=== PATIENT | female | born 1990 | race Caucasian/White ===

== ENCOUNTER 2025-08-18 12:06 | Observation (INO) | payer OTHER, SELFPAY ==
[2025-08-18 09:09] VITALS: RESP 16; TEMP 37.2
[2025-08-18 09:14] VITALS: BP 139/85; PULSE 96
[2025-08-18 09:20] VITALS: BMI 44.6
[2025-08-18 12:12] LABS: Partial Thromboplast Time 29.2 Seconds (24.1-36.2); Prothrombin Time (Protime)PT. 14.5 SECONDS (11.7-14.9)
[2025-08-18 12:13] LABS: Fibrinogen 457 mg/dl (203-444)
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
[2025-08-18 12:19] LABS: Hematocrit 31.1 % (37-47); Hemoglobin 10.2 g/dL (12.0-15.0); Mean Corp Hgb Conc 32.8 g/dL (32-36); Mean Corpuscular Volume 87.1 fL (81-99); Mean Platelet Vol. 9.3 fl (6.2-12.0); Platelet Count 198 K/mm3 (150-450); RBC Distribution Width CV 13.4 % (11.6-14.6); RBC Distribution Width SD 42.6 fl (35.1-43.9); Red Blood Count 3.57 M/mm3 (4.2-5.4); White Blood Count 11.2 K/mm3 (4.4-11.0)
[2025-08-18 17:43] VITALS: BP 135/77; PULSE 78
[2025-08-18 19:10] VITALS: BP 143/81; PULSE 95; TEMP 36.2; O2SAT 98
[2025-08-18 23:40] VITALS: BP 106/59; PULSE 70
[2025-08-19 05:19] VITALS: BP 130/70; PULSE 71; RESP 16; TEMP 36.9
== END 2025-08-19 07:40 | disposition home or self-care (01) ==
LOC: WP 12:34
PROVIDERS: Admitting Provider Obstetrics & Gynecology; Referring Provider Obstetrics & Gynecology; Visit Provider Obstetrics & Gynecology
DX: Z04.1 Encounter for examination and observation following transport accident (principal); Z79.82 Long term (current) use of aspirin; Z3A.32 32 weeks gestation of pregnancy
CPT/HCPCS: 36415; 59025; 59050; 85027; 85384; 85610; 85730; 86850; 86900; 86901; 99221; G0378

== ENCOUNTER 2025-09-22 19:30 | Inpatient (IN) | payer OTHER, SELFPAY ==
[2025-09-22] VITALS (9 sets, daily range): BP systolic 136–155; BP diastolic 90–96; PULSE 87–106; RESP 16; TEMP 36.7–37; O2SAT 92–99; BMI 45.0
--- OUTSIDE RECORDS SUMMARY | 2025-09-22 20:17 | XMS RPT_ITS | CCD ---
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 CLIA [id number] [address] [place] [address] [place] Iron binding capacity [Mass/Vol] 451 ug/dL High 232-386 [facility] Comment on above: Order Comment: Speci men Type: BLOOD SPECIMEN Ordering Facility: [facility] Address: [address] [place] [address] Performed By: #### 2 276-4, 87266-0 #### [facility] CLIA [id number] [address] [place] [address] [place] Iron/TIBC [Molar ratio] 10.9 % Low 15.0-57.0 [facility] Comment on above: Order Comment: Speci men Type: BLOOD SPECIMEN Ordering Facility: [facility] Address: [address] [place] [address] Performed By: #### 2 276-4, 37742-9 #### [facility] CLIA [id number] [address] [place], [place] [address] [place] Reagin and Treponema pallidu m IgG and IgM [Interp]on 07-21-2025 T. pallidum IgG+IgM IA Ql (S) Non-Reactive Normal Nonreactive [facility] Comment on above: Order Comment: Speci men Type: BLOOD SPECIMEN Ordering Facility: [facility] Address: [address] [place] [address] Performed By: #### 2 276-4, 28557-0 #### [facility] CLIA [id number] [address] [place] [address] [place] Reagin+T pallidum IgG+IgM Se rPl-Impon 07-21-2025 Reagin and Treponema pallidum IgG and IgM [Interp] Cannot exclude recent Treponemal infection if specimen collected within 7-10 days after appearance of suspect lesions or 2-3 weeks after an exposure. Clinical correlation is required. Normal [facility] Comment on above: Order Comment: Speci men Type: BLOOD SPECIMEN Ordering Facility: [facility] Address: [address] [place] [address] Performed By: #### 2 276-4, 79392-5 #### [facility] CLIA [id number] [address] [place] [address] [place] Examination level ultrasound on 05-26-2025 Indication Detailed anatomic survey Maternal obesity, BMI >40 Impression The patient is referred for a detailed anatomic survey. - Single, live, intrauterine . - biometry is consistent with the established gestational age. - No malformations were visualized on a complete detailed anatomic survey. - The amniotic fluid volume is normal amount. - The placenta is anterior, fundal. - The Transabdominal cervical length measures 33.2 mm with no evidence of funneling or other dynamic changes. - Not all structural malformations can be detected by ultrasound examination. Recommendations - growth every 4 weeks starting at 28 weeks. - Additional follow up as clinically indicated. Maternal Assessment Height 163 cm Height (ft) 5 ft Height (in) 4 in Physical Exam Initial weight (lb) 254 lb Initial BMI 43.60 kg/m Maternal assessment other: 1 Para 0 REMOTE READ Method Transabdominal ultrasound examination. View: Suboptimal view: limited by maternal body habitus Clements . Number of fetuses: 1 Dating LMP on: 11/30/2024 GA by LMP 25 w + 2 d MARYSOL by LMP: 09/06/2025 GA by prior assessment 20 w + 1 d MARYSOL by prior assessment: 10/12/2025 Ultrasound examination on: 05/26/2025 GA by U/S based upon: AC, BPD, Femur, HC GA by U/S 20 w + 6 d MARYSOL by U/S: 10/07/2025 Assigned: based on stated MARYSOL, selected on 05/26/2025 Assigned GA 20 w + 1 d Assigned MARYSOL: 10/12/2025 General Evaluation Cardiac activity present. FHR 145 bpm. movements: present. Presentation: cephalic Placenta: Placental site: anterior, fundal Umbilical cord: Cord vessels: 3 vessel cord. Insertion site: normal insertion Amniotic fluid: Amount of AF: normal amount. MVP 6.4 cm Growth Overview Exam date GA BPD (mm) HC (mm) AC (mm) FL (mm) HL (mm) EFW (g) 05/26/2025 20w 1d 47.9 64% 179.5 58% 168.6 91% 33.9 80% 34.6 96% 403 92% Biometry Standard BPD 47.9 mm 20w 3d 64% Hadlock OFD 63.5 mm 20w 2d 80% Nicolaides HC 179.5 mm 20w 3d 58% Patrizia Cerebellum tr 22.4 mm 20w 6d 92% Hill Nuchal fold 4.1 mm AC 168.6 mm 21w 6d 91% Hadlock Femur 33.9 mm 20w 6d 80% Patrizia Humerus 34.6 mm 21w 6d 96% Patrizia EFW 403 g 21w 0d 92% Hadlock EFW (lb) 0 lb EFW (oz) 14 oz EFW by: Hadlock (HC-AC-FL) Extended Subassemblies Wirer 4.6 mm CM 4.7 mm 40% Nicolaides Extremities / Bony Struc FL / HC 0.19 61% Hadlock Other Structures FHR 145 bpm Anatomy Cranium: normal Lateral ventricles: normal Choroid plexus: normal Midline falx: normal Cavum septi pellucidi: normal Cerebellum: normal Cisterna magna: normal Head / Neck Vermis: normal Neck: normal Nuchal fold: normal Lips: normal Profile: normal Nose: normal Face Maxilla: normal Mandible: normal Orbits: normal Lens: normal 4-chamber view: normal RVOT view: normal LVOT view: normal 3-vessel view: normal 9-lvepyx-eouctok view: normal Heart / Thorax Situs: situs solitus (normal) Aortic arch view: normal SVC: normal IVC: normal Cardiac axis: normal Rt lung: normal Lt lung: normal Diaphragm: normal Cord insertion: normal Stomach: normal Kidneys: normal Bladder: normal Genitals: normal Abdomen Abdom. wall: normal Cervical spine: normal Thoracic spine: normal Lumbar spine: normal Sacral spine: normal Arms: normal Legs: normal Rt upper arm: normal Rt forearm: normal Rt hand: normal Rt fingers: normal Lt upper arm: normal Lt forearm: normal Lt hand: normal Lt fingers: normal Rt upper leg: normal Rt lower leg: normal Rt foot: normal Lt upper leg: normal Lt lower leg: normal Lt foot: normal sex: female Wants to know sex: yes Maternal Structures Uterus / Cervix Uterus: Visualized Cervix: Visualized Approach: Transabdominal Cervical length 33.2 mm Other: Patient declined transvaginal ultrasound for cervical length. Ovaries / Tubes / Adnexa Rt ovary: Visualized Lt ovary: Visualized Performed By: Alicia Maldonado RDMS, RVT Read By: Vianey Velarde M.D. MATERNAL MEDICINE [facility]ative[facility] Telephone (OBGYWM) ERIC DE ([id number]) 1990 F Date Time Provider Department 05/13/25 ELINA MORRISON OBSTACIA During your visit today, we recorded the following information about you: Wendy Sharp LPN 05/13/2025 8:26 AM Signed Vitafol Ultra vitamin requires prior authorization. Per insurance a therapeutic alternative is preferred. Complete Leidy DHA, Plus, + DHA, TheraNatal Complete, M- PlusAron Annalee, LPN 05/13/2025 4:49 PM Signed Left message for patient to call back. Was patient able to product picker vitamin at pharmacy or does an alternative need prescribed? Lindsey Calixto, RN 05/20/2025 11:56 AM Signed Left message for patient to call office or check mychart message. ALESSIO Marie Jessica, APRN.CNM 05/22/2025 10:33 AM Signed Sent in new prescription. Bandar, Elina Morrison APRN.Darryl Amaro RN 05/22/2025 10:57 AM Signed Pt notified and voiced understanding. Darryl Cochran RN Allergies As of Date: 05/13/2025 Noted Allergy Reaction AVOCADO 03/19/2024 4 - Hives 2 - Rash 7 - Swelling CATS 06/23/2006 dust [Other] 06/23/2006 Date Reviewed: 04/28/2025 Reviewed by: Mario Bagley MA - Fully Assessed Reason for Visit: Medication Problem [65] Order(s):PNV no.72-iron xlg-HD-zu8-dha ( PLUS DHA) 27 mg iron-1 mg -312 mg-250 mg cmpkTake 1 Dose Pack by mouth once daily.Disp: 30 eachRfl: 11 Prescriptions as of 05/22/2025 - PNV no.72-iron edv-VP-sy7-dha ( PLUS DHA) 27 mg iron-1 mg -312 mg-250 mg cmpk Take 1 Dose Pack by mouth once daily. - PNV 67-iron ps-folate no.1-dha (VITAFOL ULTRA) 29 mg iron- 1 mg-200 mg cap Take 1 capsule by mouth once daily. - pyridoxine HCl, vitamin B6, (VITAMIN B-6 ORAL) Take by mouth. - aspirin, enteric coated (ECOTRIN LOW STRENGTH) 81 mg EC tablet Take 1 tablet by mouth once daily. Problem List As Of Date 05/13/2025 Noted Resolved Irregular menstrual cycle [N92.6] 08/13/2013 03/19/2024 Psoriasis [L40.9] 03/19/2024 Encounter for supervision of high risk pregnanc*02/20/2025 Obesity affecting in first trimester *02/20/2025 Nausea and vomiting [R11.2] 02/20/2025 History of trauma [Z87.828] 02/20/2025 with uncertain dates in first trimest*02/20/2025 Prescriptions ordered this encounter Disp Refills Start End PLUS DHA 27 MG IRON-1 MG-31* 30 e* 11 05/22/2025 Route: PO Sig: Take 1 Dose Pack by mouth once daily. Encounter Status:Closed by DARRYL COCHRAN on 05/22/25 Normal [facility] CBC W Auto Differential pane l (Bld)on 03-31-2025 Basophils (Bld) [#/Vol] 10*3/uL Normal <0.11 [facility] Comment on above: Order Comment: Speci men Type: BLOOD SPECIMEN Ordering Facility: [facility] Address: [address] [place] [address] Performed By: #### 2 276-4, 45355-2 #### [facility] CLIA [id number] [address] [place] [address] [place] Basophils/100 WBC (Bld) 0.1 % Normal [facility] Comment on above: Order Comment: Speci men Type: BLOOD SPECIMEN Ordering Facility: [facility] Address: [address] [place] [address] Performed By: #### 2 276-4, 24788-9 #### [facility] CLIA [id number] [address] [place] [address] [place] Differential cell count method Nom (Bld) Auto Normal [facility] Comment on above: Order Comment: Speci men Type: BLOOD SPECIMEN Ordering Facility: [facility] Address: [address] [place] [address] Performed By: #### 2 276-4, 46010-6 #### [facility] CLIA [id number] [address] [place] [address] [place] Eosinophils (Bld) [#/Vol] 0.05 10*3/uL Normal <0.46 [facility] Comment on above: Order Comment: Speci men Type: BLOOD SPECIMEN Ordering Facility: [facility] Address: [address] [place] [address] Performed By: #### 2 276-4, 48155-9 #### [facility] CLIA [id number] [address] [place] [address] [place] Eosinophils/100 WBC (Bld) 0.7 % Normal [facility] Comment on above: Order Comment: Speci men Type: BLOOD SPECIMEN Ordering Facility: [facility] Address: [address] [place] [address] Performed By: #### 2 276-4, 30853-5 #### [facility] CLIA [id number] [address] [place] [address] [place] Erythrocyte distribution width (RBC) [Ratio] 13.6 % Normal 11.5-15.0 [facility] Comment on above: Order Comment: Speci men Type: BLOOD SPECIMEN Ordering Facility: [facility] Address: [address] [place] [address] Performed By: #### 2 276-4, 50214-0 #### [facility] CLIA [id number] [address] [place] [address] [place] Hematocrit (Bld) [Volume fraction] 39.7 % Normal 36.0-46.0 [facility] Comment on above: Order Comment: Speci men Type: BLOOD SPECIMEN Ordering Facility: [facility] Address: [address] [place] [address] Performed By: #### 2 276-4, 31184-6 #### [facility] CLIA [id number] [address] [place] [address] [place] Hemoglobin (Bld) [Mass/Vol] 13.1 g/dL Normal 11.5-15.5 [facility] Comment on above: Order Comment: Speci men Type: BLOOD SPECIMEN Ordering Facility: [facility] Address: [address] [place] [address] Performed By: #### 2 276-4, 29173-3 #### [facility] CLIA [id number] [address] [place] [address] [place] Immature granulocytes (Bld) [#/Vol] 0.03 10*3/uL Normal <0.10 [facility] Comment on above: Order Comment: Speci men Type: BLOOD SPECIMEN Ordering Facility: [facility] Address: [address] [place] [address] Performed By: #### 2 276-4, 33678-1 #### [facility] CLIA [id number] [address] [place] [address] [place] Immature granulocytes/100 WBC (Bld) 0.4 % Normal [facility] Comment on above: Order Comment: Speci men Type: BLOOD SPECIMEN Ordering Facility: [facility] Address: [address] [place] [address] Performed By: #### 2 276-4, 29208-7 #### [facility] CLIA [id number] [address] [place] [address] [place] Lymphocytes (Bld) [#/Vol] 1.57 10*3/uL Normal 1.00-4.00 [facility] Comment on above: Order Comment: Speci men Type: BLOOD SPECIMEN Ordering Facility: [facility] Address: [address] [place] [address] Performed By: #### 2 276-4, 33661-1 #### [facility] CLIA [id number] [address] [place] [address] [place] Lymphocytes/100 WBC (Bld) 20.8 % Normal [facility] Comment on above: Order Comment: Speci men Type: BLOOD SPECIMEN Ordering Facility: [facility] Address: [address] [place] [address] Performed By: #### 2 276-4, 87691-2 #### [facility] CLIA [id number] [address] [place] [address] [place] MCH (RBC) [Entitic mass] 27.9 pg Normal 26.0-34.0 [facility] Comment on above: Order Comment: Speci men Type: BLOOD SPECIMEN Ordering Facility: [facility] Address: [address] [place] [address] Performed By: #### 2 276-4, 67268-8 #### [facility] CLIA [id number] [address] [place] [address] [place] MCHC (RBC) [Mass/Vol] 33.0 g/dL Normal 30.5-36.0 [facility] Comment on above: Order Comment: Speci men Type: BLOOD SPECIMEN Ordering Facility: [facility] Address: [address] [place] [address] Performed By: #### 2 276-4, 21639-3 #### [facility] CLIA [id number] [address] [place] [address] [place] MCV (RBC) [Entitic vol] 84.6 fL Normal 80.0-100.0 [facility] Comment on above: Order Comment: Speci men Type: BLOOD SPECIMEN Ordering Facility: [facility] Address: [address] [place] [address] Performed By: #### 2 276-4, 82717-4 #### [facility] CLIA [id number] [address] [place] [address] [place] Monocytes (Bld) [#/Vol] 0.43 10*3/uL Normal <0.87 [facility] Comment on above: Order Comment: Speci men Type: BLOOD SPECIMEN Ordering Facility: [facility] Address: [address] [place] [address] Performed By: #### 2 276-4, 31542-7 #### [facility] CLIA [id number] [address] [place] [address] [place] Monocytes/100 WBC (Bld) 5.7 % Normal [facility] Comment on above: Order Comment: Speci men Type: BLOOD SPECIMEN Ordering Facility: [facility] Address: [address] [place] [address] Performed By: #### 2 276-4, 28998-8 #### [facility] CLIA [id number] [address] [place] [address] [place] Neutrophils (Bld) [#/Vol] 5.44 10*3/uL Normal 1.45-7.50 [facility] Comment on above: Order Comment: Speci men Type: BLOOD SPECIMEN Ordering Facility: [facility] Address: [address] [place] [address] Performed By: #### 2 276-4, 33625-1 #### [facility] CLIA [id number] [address] [place] [address] [place] Neutrophils/100 WBC (Bld) 72.3 % Normal [facility] Comment on above: Order Comment: Speci men Type: BLOOD SPECIMEN Ordering Facility: [facility] Address: [address] [place] [address] Performed By: #### 2 276-4, 00244-3 #### [facility] CLIA [id number] [address] [place] [address] [place] Nucleated RBC (Bld) [#/Vol] 10*3/uL Normal <0.01 [facility] Comment on above: Order Comment: Speci men Type: BLOOD SPECIMEN Ordering Facility: [facility] Address: [address] [place] [address] Performed By: #### 2 276-4, 81260-3 #### [facility] CLIA [id number] [address] [place] [address] [place] Nucleated RBC/100 WBC (Bld) [Ratio] 0.0 /100 WBC Normal [facility] Comment on above: Order Comment: Speci men Type: BLOOD SPECIMEN Ordering Facility: [facility] Address: [address] [place] [address] Performed By: #### 2 276-4, 87530-7 #### [facility] CLIA [id number] [address] [place] [address] [place] Platelet mean volume (Bld) [Entitic vol] 8.4 fL Low 9.0-12.7 [facility] Comment on above: Order Comment: Speci men Type: BLOOD SPECIMEN Ordering Facility: [facility] Address: [address] [place] [address] Performed By: #### 2 276-4, 22850-2 #### [facility] CLIA [id number] [address] [place] [address] [place] Platelets (Bld) [#/Vol] 274 10*3/uL Normal 150-400 [facility] Comment on above: Order Comment: Speci men Type: BLOOD SPECIMEN Ordering Facility: [facility] Address: [address] [place] [address] Performed By: #### 2 276-4, 89158-3 #### [facility] CLIA [id number] [address] [place] [address] [place] RBC (Bld) [#/Vol] 4.69 10*6/uL Normal 3.90-5.20 [facility] Comment on above: Order Comment: Speci men Type: BLOOD SPECIMEN Ordering Facility: [facility] Address: [address] [place] [address] Performed By: #### 2 276-4, 94060-4 #### [facility] CLIA [id number] [address] [place] [address] [place] WBC (Bld) [#/Vol] 7.53 10*3/uL Normal 3.70-11.00 [facility] Comment on above: Order Comment: Speci men Type: BLOOD SPECIMEN Ordering Facility: [facility] Address: [address] [place] [address] Performed By: #### 2 276-4, 20656-8 #### [facility] CLIA [id number] [address] [place], [place] [address] [place] Examination level ultrasound on 03-31-2025 Indication First trimester anatomic survey Maternal obesity, BMI >40 Impression The patient is referred for a first trimester anatomy scan including nuchal translucency measurement as clinically indicated. - Single, live, intrauterine . - [place] rump length measurement is consistent with the established gestational age. - No malformations visualized on first trimester anatomic assessment. - The nuchal translucency measurement is 1.5 mm. - Not all structural malformations can be detected by ultrasound examination. Maternal Structures: Right Ovary: Size 24 mm x 17 mm x 14 mm Left Ovary: Size 37 mm x 27 mm x 19 mm Recommendations - A standard anatomic survey at 16 weeks can be offered and a detailed exam at 20 weeks is recommended for increased risk. Maternal Assessment Height 163 cm Height (ft) 5 ft Height (in) 4 in Physical Exam Initial weight (lb) 254 lb Initial BMI 43.60 kg/m Maternal assessment other: 1 Para 0 REMOTE READ Method Transabdominal ultrasound examination Clements . Number of fetuses: 1 Dating LMP on: 11/30/2024 GA by LMP 17 w + 2 d MARYSOL by LMP: 09/06/2025 GA by prior assessment 12 w + 1 d MARYSOL by prior assessment: 10/12/2025 Ultrasound examination on: 03/31/2025 GA by U/S based upon: CRL GA by U/S 12 w + 4 d MARYSOL by U/S: 10/09/2025 Assigned: based on stated MARYSOL, selected on 03/31/2025 Assigned GA 12 w + 1 d Assigned MARYSOL: 10/12/2025 General Evaluation Cardiac activity present Placenta: anterior Cord vessels: 3 vessel cord Amniotic fluid: normal amount Biometry Standard FHR 160 bpm CRL 60.8 mm 12w 4d 68% Hadlock NT 1.50 mm First Trimester Anatomy Calvarium: normal Falx cerebri: normal Choroid plexus: normal Profile: normal Nasal bone: normal Retronasal triangle: normal Maxilla: normal Mandible: normal Nuchal translucency: Unremarkable Situs: normal Cardiac position: normal Cardiac axis: normal 4-chamber view: visualized 4-chamber view with color: visualized 8-[id number]-fgjfzru view: visualized Abdominal cord insertion: normal Stomach: normal Kidneys: normal Bladder: normal Color doppler of perivesical umbilical arteries: normal Vertebral alignment: normal Arms: normal Hands: normal Legs: normal Feet: normal Maternal Structures Uterus / Cervix Uterus: Visualized Uterus length 145 mm Uterus width 100 mm Uterus height 71 mm Uterus Vol 538.4 cm Ovaries / Tubes / Adnexa Rt ovary: Visualized Rt ovary D1 24 mm Rt ovary D2 17 mm Rt ovary D3 14 mm Rt ovary Vol 3.1 cm Lt ovary: Visualized Lt ovary D1 37 mm Lt ovary D2 27 mm Lt ovary D3 19 mm Lt ovary Vol 9.9 cm Performed By: Alicia Maldonado RDMS, RVT Read By: Aliya Valdes M.D. MATERNAL MEDICINE [facility] Radiology Study observation (narrative) [facility] HBV surface Ag Ser Qlon 06- HBV surface Ag Ql (S) Negative Normal Negative [facility] Comment on above: Order Comment: Speci men Type: BLOOD SPECIMEN Ordering Facility: [facility] Address: [address] [place] [address] Performed By: #### 5 195-3, 51343-5, 53892-8 #### [facility] CLIA [id number] [address] [place] [address] [place] HCV Ab Ser Qlon 03-31-2025 HCV Ab Ql (S) Negative Normal Negative [facility] Comment on above: Order Comment: Speci men Type: BLOOD SPECIMEN Ordering Facility: [facility] Address: [address] [place] [address] Result Comment: The result suggests no evidence of infection with Hepatitis C virus. Should recent infection be suspected, repeat testing may be considered 4-6 weeks after this draw. Performed By: #### 2 276-4, 82008-8 #### [facility] CLIA [id number] [address] [place] [address] [place] HIV 1+2 Ab IA Qlon HIV 1 and 2 Ab IA.rapid Nom (S/P/Bld) Normal [facility] Comment on above: Order Comment: Speci men Type: BLOOD SPECIMEN Ordering Facility: [facility] Address: [address] [place] [address] Result Comment: Test not indicated. Performed By: #### 5 195-3, 96982-7, 73696-3 #### [facility] CLIA [id number] [address] [place] [address] [place] HIV 1+2 Ab+HIV1 p24 Ag IA Ql Non-Reactive Normal Nonreactive [facility] Comment on above: Order Comment: Speci men Type: BLOOD SPECIMEN Ordering Facility: [facility] Address: [address] [place] [address] Performed By: #### 5 195-3, 10381-8, 99925-2 #### [facility] CLIA [id number] [address] [place] [address] [place] HIV immunoassay testing algorithm interpretation (S/P/Bld) [Interp] Normal [facility] Comment on above: Order Comment: Speci men Type: BLOOD SPECIMEN Ordering Facility: [facility] Address: [address] [place] [address] Result Comment: No e vidence of HIV-1 or HIV-2 infection. Should recent infection be suspected, repeat testing may be considered 2-3 weeks after this draw. [place] Rev. Code 3701.243(E): This information has been disclosed to you from confidential records protected from disclosure by state law. You shall make no further disclosure of this information without the specific, written, and informed release of the individual to whom it pertains or as otherwise permitted by state law. A general authorization for the release of medical or other information is not sufficient for the purpose of the release of HIV test results or diagnoses. Performed By: #### 5 195-3, 63742-2, 40602-4 #### [facility] CLIA [id number] [address] [place] [address] [place] HbA1c (Bld)on 03-31-2025 Average glucose Estimated from glycated hemoglobin (Bld) [Mass/Vol] 100 mg/dL Normal [facility] Comment on above: Order Comment: Speci men Type: BLOOD SPECIMEN Ordering Facility: [facility] Address: [address] [place] [address] Result Comment: eAG: (Estimated average glucose) is a calculated value from HgbA1c and is graphic art sales representative of the average blood glucose level in the last 2-3 month period. Performed By: #### 5 5454-3 #### [facility] CLIA [id number] [address] [place] [address] [place] HbA1c (Bld) [Mass fraction] 5.1 % Normal 4.3-5.6 [facility] Comment on above: Order Comment: [facility] Type: BLOOD SPECIMEN Ordering Facility: [facility] Address: [address] [place] [address] Result Comment: [place] Diabetes Association guidelines indicate that patients with HgbA1c in the range 5.7-6.4% are at increased risk for development of diabetes, and intervention by lifestyle modification may be beneficial. HgbA1c greater or equal to 6.5% is considered diagnostic of diabetes. Performed By: #### 5 5454-3 #### [facility] CLIA [id number] [address] [place] [address] [place] RUBELLA IGG ANTIBODYon 03-31 RUBELLA IGG AB, QUAL Positive Normal Positive [facility] Comment on above: Order Comment: [facility] Type: BLOOD SPECIMEN Ordering Facility: [facility] Address: [address] [place] [address] Result Comment: The result suggests recent or past exposure to Rubella virus or history of Rubella vaccination. Positive result may also be seen due to presence of passively-transferred antibodies. Please correlate with patient's history. Performed By: #### 2 276-4, 49458-8 #### [facility] CLIA [id number] [address] [place] [address] [place] Reagin and Treponema pallidu m IgG and IgM [Interp]on 03-31-2025 T. pallidum IgG+IgM IA Ql (S) Non-Reactive Normal Nonreactive [facility] Comment on above: Order Comment: [facility] Type: BLOOD SPECIMEN Ordering Facility: [facility] Address: [address] [place] [address] Performed By: #### 5 195-3, 85636-3, 84182-8 #### [facility] CLIA [id number] [address] [place] [address] [place] Reagin+T pallidum IgG+IgM Se rPl-Impon 03-31-2025 Reagin and Treponema pallidum IgG and IgM [Interp] Cannot exclude recent Treponemal infection if specimen collected within 7-10 days after appearance of suspect lesions or 2-3 weeks after an exposure. Clinical correlation is required. Normal [facility] Comment on above: Order Comment: Speci men Type: BLOOD SPECIMEN Ordering Facility: [facility] Address: [address] [place] [address] Performed By: #### 5 195-3, 15288-7, 35552-5 #### [facility] CLIA [id number] [address] [place] [address] [place] TYPE + SCREEN PRENATALon ABO O Normal [facility] Comment on above: Order Comment: Speci men Type: BLOOD SPECIMEN Ordering Facility: [facility] Address: [address] [place] [address] Performed By: #### T SPN #### [facility] CLIA [id number] [address] [place] [address] [place] Rh Nom (Bld) Positive Normal [facility] Comment on above: Order Comment: Speci men Type: BLOOD SPECIMEN Ordering Facility: [facility] Address: [address] [place] [address] Performed By: #### T SPN #### [facility] CLIA [id number] [address] [place] [address] [place] TYPE AND SCREEN EXPIRATION 04/03/2025 23:59 Normal [facility] Comment on above: Order Comment: Speci men Type: BLOOD SPECIMEN Ordering Facility: [facility] Address: [address] [place] [address] Performed By: #### T SPN #### [facility] CLIA [id number] [address] [place] [address] [place] Bacteria Ur Culton Bacteria identified Cx Nom (U) ORGANISM ID: 1 10,000 -<50,000 CFU/ml Normal urogenital alexander Normal [facility] Comment on above: Performed By: #### 2 276-4, 37107-4 #### [facility] CLIA [id number] [address] [place] [address] [place] C. trachomatis+N. gonorrhoea e DNA NELLY+probe Ql (Unsp spec)on 02-20-2025 C. trachomatis rRNA NELLY+probe Ql (Unsp spec) Not detected Normal Not detected [facility] Comment on above: Order Comment: Speci men Type: BLOOD SPECIMEN Ordering Facility: [facility] Address: [address] [place] [address] Performed By: #### 2 276-4, 93009-9 #### [facility] CLIA [id number] [address] [place] [address] N. 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 Method Transabdominal ultrasound examination, Transvaginal ultrasound examination. View: Adequate visualization Clements . Number of embryos: 1 Dating LMP on: 11/30/2024 GA by LMP 11 w + 5 d MARYSOL by LMP: 09/06/2025 Ultrasound examination on: 02/20/2025 GA by U/S based upon: CRL GA by U/S 6 w + 4 d MARYSOL by U/S: 10/12/2025 Assigned: based on ultrasound (CRL), selected on 02/20/2025 Assigned GA 6 w + 4 d Assigned MARYSOL: 10/12/2025 Biometry Standard FHR 129 bpm CRL 7.3 mm 6w 4d 84% Hadlock Assessment Gestational sac: visualized Location: intrauterine Yolk sac: visualized Embryo: visualized CRL 7.3 mm 6w 4d 84% Hadlock Cardiac activity: present FHR 129 bpm General Evaluation Cardiac activity present. FHR 129 bpm Performed By: Eloisa Gary NP Read By: Eloisa Gary NP MATERNAL MEDICINE [facility] Radiology Study observation (narrative) [facility] TRICHOMONAS VAGINALIS NAATon 02-20-2025 T. vaginalis DNA NELLY+probe Ql (Unsp spec) Not detected Normal Not detected [facility] Comment on above: Order Comment: Speci men Type: BLOOD SPECIMEN Ordering Facility: [facility] Address: [address] [place] [address] Performed By: #### 2 276-4, 18672-4 #### [facility] CLIA [id number] [address] [place] [address] [place] DBT Breast - bilateral diagn ostic for implanton 04-23-2024 * * *Final Report* * * DATE OF EXAM: Apr 23 2024 9:37AM [id number] - [facility] HANNAH W BETSY YIFAN / PROCEDURE REASON: Mass overlapping multiple quadrants of left breast * * * * Physician Interpretation * * * * RESULT: #[id number] - JARED DIAG W BETSY YIFAN #[id number] - [facility] US BREAST LTD LT BILATERAL DIGITAL DIAGNOSTIC MAMMOGRAM TOMOSYNTHESIS WITH CAD: 04/23/2024 HISTORY: Lt lump for couple of months itchiness but also has psoriasis over lump family hx of breast ca mother Mass Overlapping Multiple Quadrants Of Left Breast Mass Overlapping Multiple Quadrants Of Left Breast. RESULT: TECHNIQUE: The study was acquired using full field digital technology and interpreted from soft copy. Digital Breast Tomosynthesis (DBT) images were obtained and used to assist in the interpretation of this examination. Current study was also evaluated with a Computer Aided Detection (CAD). No prior exams were available for comparison. The breasts are extremely dense, which lowers the sensitivity of mammography. No significant masses, calcifications, or other findings are seen in either breast. DIVISION OF RADIOLOGY Provider, [facility] [place] - 04/23/2024 * * *Final Report* * * DATE OF EXAM: Apr 23 2024 9:37AM WRW 0627 - [facility] DIAG W BETSY YIFAN / PROCEDURE REASON: Mass overlapping multiple quadrants of left breast * * * * Physician Interpretation * * * * RESULT: #[id number] - JARED DIAG W BETSY YIFAN #[id number] - [facility] US BREAST LTD LT BILATERAL DIGITAL DIAGNOSTIC MAMMOGRAM TOMOSYNTHESIS WITH CAD: 04/23/2024 HISTORY: Lt lump for couple of months itchiness but also has psoriasis over lump family hx of breast ca mother Mass Overlapping Multiple Quadrants Of Left Breast Mass Overlapping Multiple Quadrants Of Left Breast. RESULT: TECHNIQUE: The study was acquired using full field digital technology and interpreted from soft copy. Digital Breast Tomosynthesis (DBT) images were obtained and used to assist in the interpretation of this examination. Current study was also evaluated with a Computer Aided Detection (CAD). No prior exams were available for comparison. The breasts are extremely dense, which lowers the sensitivity of mammography. No significant masses, calcifications, or other findings are seen in either breast. IMPRESSION IMPRESSION: INCOMPLETE: NEEDS ADDITIONAL IMAGING EVALUATION There is no abnormality seen in the left breast to correspond with the palpable abnormality, however, ultrasound is recommended. LIMITED ULTRASOUND OF LEFT BREAST: 04/23/2024 RESULT: No prior exams were available for comparison. Color flow and real-time ultrasound of the left breast 10 o'clock region were performed. De scale images of the real-time examination were reviewed. IMPRESSION: NEGATIVE There is no sonographic evidence of malignancy. There is no abnormality seen in the left breast to correspond with the palpable abnormality, however, clinical correlation is recommended. Chrissy reno/mari:04/23/2024 09:49:23 Multiple national specialty organizations have released breast cancer screening guidelines for women at average risk for developing breast cancer - guidelines that are based on both evidence and opinion, yet differ on when to start and how often to screen for breast cancer. With representation from Breast Imaging, Internal Medicine, Women's Health, Family Medicine, and Medical/Surgical Oncology, the [facility] has carefully reviewed the data and reached the following consensus: 1) All women should engage in shared decision-making with their providers to decide when to start and how often to screen; 2) All women should have the opportunity to start screening mammography at age 40; 3) For women ages 45-55, we recommend annual screening mammograms; 4) For women ages 55 and over, we support both the transition from an annual to a biennial interval if this aligns more with patient's values and preferences, or continuation with annual screening; 5) All women should discuss with their providers when to stop screening mammograms. Door Worker(s): Gloria Franklin, [facility]; RT Grady(Daniel)(M), [facility] OVERALL STUDY BIRADS: 1 Negative Notereader: Mari Transcribe Date/Time: Apr 23 2024 9:01A Dictated by: CHRISSY JOHNSTON MD This examination was interpreted and the report reviewed and electronically signed by: CHRISSY JOHNSTON MD on Apr 23 2024 9:49AM EST [facility] No Panel InformationOrdered By: Cc Provider on 04-23-2024 [facility] No Panel Informationon 04-23 Radiology Study observation (narrative) [facility] Breast - left limitedon 0 04-23-2024 * * *Final Report* * * DATE OF EXAM: Apr 23 2024 9:44AM [id number] - [facility] tydy BREAST LTD LT / PROCEDURE REASON: Mass overlapping multiple quadrants of left breast * * * * Physician Interpretation * * * * #[id number] - [facility] DIAG W BETSY YIFAN #[id number] - [facility] US BREAST LTD LT BILATERAL DIGITAL DIAGNOSTIC MAMMOGRAM TOMOSYNTHESIS WITH CAD: 04/23/2024 HISTORY: Lt lump for couple of months itchiness but also has psoriasis over lump family hx of breast ca mother Mass Overlapping Multiple Quadrants Of Left Breast Mass Overlapping Multiple Quadrants Of Left Breast. RESULT: TECHNIQUE: The study was acquired using full field digital technology and interpreted from soft copy. Digital Breast Tomosynthesis (DBT) images were obtained and used to assist in the interpretation of this examination. Current study was also evaluated with a Computer Aided Detection (CAD). No prior exams were available for comparison. The breasts are extremely dense, which lowers the sensitivity of mammography. No significant masses, calcifications, or other findings are seen in either breast. DIVISION OF RADIOLOGY Provider, [facility] [place] - 04/23/2024 * * *Final Report* * * DATE OF EXAM: Apr 23 2024 9:44AM WRU 0593 - [facility] US BREAST LTD LT / PROCEDURE REASON: Mass overlapping multiple quadrants of left breast * * * * Physician Interpretation * * * * #[id number] - JARED DIAG W BETSY YIFAN #[id number] - [facility] tydy BREAST LTD LT BILATERAL DIGITAL DIAGNOSTIC MAMMOGRAM TOMOSYNTHESIS WITH CAD: 04/23/2024 HISTORY: Lt lump for couple of months itchiness but also has psoriasis over lump family hx of breast ca mother Mass Overlapping Multiple Quadrants Of Left Breast Mass Overlapping Multiple Quadrants Of Left Breast. RESULT: TECHNIQUE: The study was acquired using full field digital technology and interpreted from soft copy. Digital Breast Tomosynthesis (DBT) images were obtained and used to assist in the interpretation of this examination. Current study was also evaluated with a Computer Aided Detection (CAD). No prior exams were available for comparison. The breasts are extremely dense, which lowers the sensitivity of mammography. No significant masses, calcifications, or other findings are seen in either breast. IMPRESSION IMPRESSION: INCOMPLETE: NEEDS ADDITIONAL IMAGING EVALUATION There is no abnormality seen in the left breast to correspond with the palpable abnormality, however, ultrasound is recommended. LIMITED ULTRASOUND OF LEFT BREAST: 04/23/2024 RESULT: No prior exams were available for comparison. Color flow and real-time ultrasound of the left breast 10 o'clock region were performed. De scale images of the real-time examination were reviewed. IMPRESSION: NEGATIVE There is no sonographic evidence of malignancy. There is no abnormality seen in the left breast to correspond with the palpable abnormality, however, clinical correlation is recommended. Chrissy reno/mari:04/23/2024 09:49:23 Multiple national specialty organizations have released breast cancer screening guidelines for women at average risk for developing breast cancer - guidelines that are based on both evidence and opinion, yet differ on when to start and how often to screen for breast cancer. With representation from Breast Imaging, Internal Medicine, Women's Health, Family Medicine, and Medical/Surgical Oncology, the [facility] has carefully reviewed the data and reached the following consensus: 1) All women should engage in shared decision-making with their providers to decide when to start and how often to screen; 2) All women should have the opportunity to start screening mammography at age 40; 3) For women ages 45-55, we recommend annual screening mammograms; 4) For women ages 55 and over, we support both the transition from an annual to a biennial interval if this aligns more with patient's values and preferences, or continuation with annual screening; 5) All women should discuss with their providers when to stop screening mammograms. Door Worker(s): Gloria Franklin, [facility]; RT Grady(R)(M), [facility] OVERALL STUDY BIRADS: 1 Negative Notereader: Mari Transcribe Date/Time: Apr 23 2024 9:01A Dictated by : CHRISSY JOHNSTON MD This examination was interpreted and the report reviewed and electronically signed by: CHRISSY JOHNSTON MD on Apr 23 2024 9:49AM EST [facility] Provider Note - ED v3on 03-24 Provider Note - ED v3 Provider Note: Chart Review: HISTORY OF PRESENTING ILLNESS ERIC is a 31 year old Female and was seen by me at 18-Apr-2022 13:40. Triage Information: Most recent Vital Sign Value Date PAST MEDICAL HISTORY PSYCHOSOCIAL SCREENING: NO: concerns for safety at home, feels like hurting others and feels like hurting self CURRENT OR FORMER SUBSTANCE USE: Tobacco/Nicotine Use: never smoker Alcohol Use: occasionally ALLERGIES/INTOLERANC ES: No Known Allergies HEALTH HISTORY: No documented data. OUTPATIENT MEDICATIONS: Home Medications Review Status for Reconciliation: Incomplete Med Status: Incomplete Medication History Drug Name: control Instructions: null SIGNIFICANT EVENTS: No documented data. R&D ENGINEER: Is : no Is : no MDM MDM/ED COURSE: This note was dictated using Dragon Dictation there may be errors in spelling, grammar, formatting, and misrecognization of what was dictated. Chief Complaint: ``Earache HPI: Historian Patient States that symptoms started beginning of march after getting water in her ears. Complains of see ROS. Denies see ROS Has tried taking denies. Factors that aggravate symptoms include denies. Patient was not recently exposed to sick contact. Patient has had similar symptoms like this before, she has had a lot of ear infections as a child. Recent Travel Denies Review of Systems (+)=Complains of (-)= Denies General: : (-)Weakness, (-)Fatigue,(+)Headac he and (-)Fever (-) Chills Mouth/Throat: (-) Sore Throat, (- )Hoarseness, (-)Post nasal drip Eyes:(-) Eye pain, (-)change in vision,( -)redness (-) discharge Nose/Sinuses:(-) Nasal Stuffiness, , (-)Discharge, (-)Sinus Pressure. Ears: (-) Pain, (+both) Fullness (-)Discharge, Skin: (,( -)rash Pulmonary: (-) Cough(,-productive), (-) Dyspnea, (-)Wheezing. Cardiac: (-) Chest pain, (-) Chest Congestion, (-)Edema. Gastrointestinal: (-) Nausea,(-) Vomiting,( -)Diarrhea( -)Abdominal Pain. Psychological: (-) Anxiety, (-) Depression, (-) Thoughts or plan of self-harm. PHYSICAL EXAM Patient in seated position. Appearance well groomed, alert and orientated, no acute distress, speech clear, and evenly paced, good historian, cooperative. Head: Normocephalic Neuro: No focal neurologic deficits. Age-appropriate, interactive, and nontoxic in appearance. Ear: External pinna skin intact with no mases, lesions, or discharge. No tenderness with manipulation of tragus and pinna. No tenderness, erythema, or swelling over mastoid. Otoscopic: some erythema and redness noted to the canal. TM bilaterally pearly de with light reflex and landmarks intact, no perforation. Eye: Light reflex: symmetrical bilaterally Inspection: Brows and lashes present no ptosis, conjunctiva clear, sclera white, cornea smooth and clear no lesions. Nose: Nose symmetric, no deformity, or lesions, nares patent, mucosa pink,, lesions, polyps, no septal deviation or perforation. [No] Audible nasal congestion noted no discharge noted. Sinus : [No] tenderness to ethmoid, and maxillary sinus upon palpation, [No] transillumination diffuse red glow noted. Mouth: Throat mucosa [pink ], no lesions, no exudate. no post nasal drip is noted. Uvula midline rises on phonation. + gag reflex. Lips moist and pink. Teeth intact and well maintained no missing or chipped teeth. No foul-smelling odor from breath. Soft and hard palpate intact. Tongue surface smooth, shiny with veins. Neck: no tender high anterior/posterior cervical lymphadenopathy Skin: Inspection: Visible Color: appropriate for ethnicity Moisture: dry to touch throughout Temperature: warm bilaterally Tenderness: no tenderness noted Texture: smooth, Edema: none noted Cardiac: Regular rate, rhythm S1 S2. No murmur rubs or gallops. Lungs: Inspection +symmetric expansion, Patient sitting , respirations full, easy, and unlabored, skin color appropriate for ethnicity, pink, no cyanosis, or lesions noted. Auscultation Lungs clear and equal bilaterally. No stridor. No wheezes, rales or rhonchi. Tracheal/bronchial- loud high pitch. Bronchovesicular moderate pitch. Diagnostic: [id number] and Flu Specimens obtained today in clinic for send out testing Plan/Impression: Symptoms consistent with otitis externa, but reviewed other potential etiologies RX: Ofloxicin Instructed to push fluids, rest, and to use appropriate over the counter medications as needed for management of symptoms -daily allergy relief, saline nasal spray, Patients BP noted elevated today, patient states that it is always elevated when she is at the doctors, she will self monitor at home, and report to her PCP. Reviewed red flags, counseled on potential adverse reactions of treatments, expectations for improvement in sxs, and advised to follow-up with primary care provider in 3- (more content not included)... Normal [facility] Covid 19 Resultson 2 SARS-CoV-2 (COVID-19) RNA NELLY+probe Ql (Unsp spec) NEGATIVE COVID-19 Test Coronaviruses are common world-wide and are the cause of many common colds. SARS-COV2 is a new coronavirus that began circulating worldwide in 2019 so we are calling it COVID-19. It has been estimated that four out of five patients with COVID-19 will recover at home without the need for medical attention. Symptoms of COVID-19 may include cough, fever, shortness of breath, loss of taste or smell and other flu-like symptoms including chills, sore muscles, sore throat, and headache. Severe illness is more common in older people and people with other health problems such as high blood pressure, obesity, and immune system problems. If the test is positive, you have COVID-19. You will be contacted by the ordering physicians office and instructed to remain on home isolation, in accordance with CDC guidelines. You may also be contacted by the [facility] to see if any of your close contacts may have been exposed to the virus and need to quarantine. If the test is negative, you likely do not have COVID-19 at this time, but you still may have a different illness that can spread to other people (like Influenza, or the Flu) and could still be at risk for getting COVID-19. We recommend that you stay away from other people to limit the spread of illness until your symptoms are improving and you are fever-free for 24 hours without the use of fever lowering medications such as acetaminophen or ibuprofen. No test is 100% accurate so if you are still concerned you may have COVID-19, talk to your doctor about the need to continue to stay away from others. Medicines Unless your provider told you not to use the following: Acetaminophen (Tylenol and others) is generally safe. Anti-inflammatory medications, such as Ibuprofen (Advil or Motrin) or Naproxen (Aleve) can also be used. Knvp-guy-waberwv cough and cold medicines can be used according to the instructions on the package. Some opjl-flw-vfxjzjg medicines also contain acetaminophen. Make sure you are not taking more than your recommended dose. For those not hospitalized, there is no specific treatment available for this illness. Antibiotics do not treat Coronaviruses. Follow-Up Follow up with your doctor by scheduling a virtual visit or consider follow-up at one of our urgent care fever clinics. If you are having difficulty breathing, or are very weak and having difficulty standing, this is a medical emergency. Call 911 or have someone take you to the nearest emergency room immediately. If possible, wear a facemask. Additional guidance from the CDC for patients who tested POSITIVE for COVID-19 How to isolate: Isolate yourself in a specific room at home and limit your contact with others. Use a separate bathroom from other members of the household, when possible. Leave home only to get essential medical care. Do not go to work, school or public areas. Avoid using public transportation, ride-sharing, or taxis. Restrict contact with pets and other animals. If you must care for your pet or be around animals while you are sick, wash your hands before and after your interaction and wear a facemask. Make sure that shared spaces in the home have good airflow, such as by an air conditioner or an opened window, weather permitting. Personal Hygiene Procedures: Wear a face mask when in the same room as other people or pets. If a face mask interferes with your breathing, others should wear a mask when sharing space with you. Frequent hand-washing: wash your hands with soap and water for at least 20 seconds. If soap and water are not available, use alcohol-based hand correction officer supervisor. Avoid touching your eyes, nose, and mouth with unwashed hands. Household Hygiene Procedures: Avoid sharing personal household items such as dishes, glassware, cups, eating utensils, towels or bedding with other people or pets in your home. After use, these items should be washed with soap and hot water. Disinfect all high-touch surfaces every day with antibacterial cleaning solutions such as Lysol wipes, bleach, cleansers, etc. High-touch surfaces include tabletops, doorknobs, bathroom fixtures, toilets, phones, keyboards, tablets and bedside tables. Immediately clean any surfaces that may have blood, poop or body fluids on them, using antibacterial cleaning solutions such as Lysol wipes, bleach, cleansers, etc. If clothing or bedding come into contact with blood, poop or body fluids, they should be washed immediately. Follow the directions on the laundry detergent and clothing labels but hot water is recommended when possible. Stopping home isolation precautions: If possible, consult your doctor before stopping home isolation precautions. According to the CDC, you can discontinue home isolation precautions when you have met both of these criteria: Your fever and respiratory symptoms have been gone for 24 chacorta (more content not included)... Normal [facility] INFLUENZA A/B, COVID 2019 PC R,SYMPTOMATICon 11-02-2021 INFLUENZA A, PCR Not detected Normal Not Detected [facility], [place] Comment on above: Order Comment: Phys Name Neela Sharif NP Phys Address Phone # Fax # Result Comment: Resp iratory virus testing is performed routinely by PCR for Influenza A/B and RSV. If Influenza and RSV PCR are negative, testing for parainfluenza 1,2,3 viruses and adenovirus is routinely performed for oncology inpatients and intensive care unit patients at [facility] and is available on request on other patients by calling Laboratory Client Services at [phone]. Not Detected results do not preclude Influenza A/B or RSV infections since the adequacy of sample collection or low viral burden may impact the clinical sensitivity of this test method. Performed By: #### C OINP #### [facility] [address] [place] [address] INFLUENZA B, PCR Not detected Normal Not Detected [facility], [place] Comment on above: Order Comment: Phys Name Neela Sharif NP Phys Address Phone # Fax # Result Comment: Resp iratory virus testing is performed routinely by PCR for Influenza A/B and RSV. If Influenza and RSV PCR are negative, testing for parainfluenza 1,2,3 viruses and adenovirus is routinely performed for oncology inpatients and intensive care unit patients at [facility] and is available on request on other patients by calling Laboratory Client Services at [phone] Not Detected results do not preclude Influenza A/B or RSV infections since the adequacy of sample collection or low viral burden may impact the clinical sensitivity of this test method. . The TaqManTM SARS-CoV-2, Flu A, Flu B Multiplex Assay is a multiplex, real-time RT-PCR assay for the detection of RNA from the SARS-CoV-2, Influenza A, and Influenza B viruses. A negative result does not preclude the possibility of SARS-CoV-2, Influenza A, or Influenza B infections, and should not be used as the sole basis for patient management decision as a negative result may be caused by very low levels of infection, collection errors, or testing errors. . This test was developed and its performance characteristics were determined by the Microbiology Laboratory, Department of Pathology, [facility], [place], [place]. It has not been cleared or approved by the US Food and Drug Administration; however, FDA clearance or approval is not currently required for clinical use. This test should not be regarded as investigational or for research purposes. Performed By: #### C OINP #### [facility] [address] [place], [place] [facility] SARS-CoV-2 (COVID-19) RNA NELLY+probe Ql (Unsp spec) Not detected Normal Not Detected [facility] Comment on above: Order Comment: Phys Name Neela Sharif MARCK Phys Address Phone # Fax # Result Comment: . This assay is designed to detect the N, ORF1ab and/or S genes of SARS-CoV-2 via nucleic acid amplification. A Negative (NOT DETECTED) result does not preclude 2019-nCoV infection since the adequacy of sample collection and/or low viral burden may result in presence of viral nucleic acids below the clinical sensitivity of this test method. Negative (NOT DETECTED) result should not be used as the sole basis for treatment or other patient management decisions. Rather negative results should be combined with clinical observations, patient history, and epidemiological information to make patient management decisions. Fact sheet for providers: https://www.fda.gov/media/078538/download Fact sheet for patients: https://www.fda.gov/media/820567/download This test has received FDA Emergency Use Authorization (EUA) and has been verified by [facility] ([facility]). This test is only authorized for the duration of time that circumstances exist to justify the authorization of the emergency use of in vitro diagnostic tests for the detection of SARS-CoV-2 virus and/or diagnosis of COVID-19 infection under section 564(b)(1) of the Act, 21 U.S.C. 360bbb-3(b)(1), unless the authorization is terminated or revoked sooner. [facility] is certified under CLIA-88 as qualified to perform high complexity testing. Testing is performed in the [facility] laboratories located at [address] [place] [address]. Performed By: #### C OINP #### [address] [place] [address] INFLUENZA A/B, COVID 2019 PC R,SYMPTOMATICon 11-01-2021 DATE OF SYMPTOM ONSET [[id number]]? [id number] Normal [facility] Comment on above: Order Comment: Phys Name Neela Sharif MARCK Phys Address Phone # Fax # Performed By: #### C OINP #### [address] [address] Lab Specimen Source Nasal, Nasopharyngeal Normal [facility] Comment on above: Order Comment: Phys Name Neela Sharif SECURITY MANAGER Phys Address Phone # Fax # Performed By: #### C OINP #### [facility] [address] [place] [address] Provider Note - ED v3on 10-23 Provider Note - ED v3 Provider Note: Chart Review: HISTORY OF PRESENTING ILLNESS ERIC is a 31 year old Female and was seen by me at 01-Nov-2021 11:28. Triage Information: Most recent Vital Sign Value Date PAST MEDICAL HISTORY CURRENT OR FORMER SUBSTANCE USE: Tobacco/Nicotine Use: never smoker Alcohol Use: denies Drug Use: denies,ALLERGIES/INT OLERANCES: No Known Allergies HEALTH HISTORY: No documented data. OUTPATIENT MEDICATIONS: Home Medications Review Status for Reconciliation: Complete Med Status: Patient Currently Takes Medications Drug Name: control Instructions: null SIGNIFICANT EVENTS: No documented data. R&D ENGINEER: Last Menstrual Period: 01-Oct-2021 Is : no Is : no CRITICAL CARE VITAL SIGNS: T PRBP SpO2O2(LPM) %FiO2 Method 01-Nov-2021 11:34:[id number] 9 96 MDM MDM/ED COURSE: This note was dictated using Dragon Dictation there may be errors in spelling, grammar, formatting, and misrecognization of what was dictated. Chief Complaint: ``I have flu like symptoms HPI: Historian Patient States that symptoms started 2 days ago. Complains of see ROS. Denies see ROS Relieving factor, has tried taking vitamins, and eating fruits and vegetables. 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 Has not had known history of COVID infection. Patient has been vaccinated x2 lat dose in July Review of Systems (+)=Complains of (-)= Denies General: : ({-)Weakness, (+)Fatigue,(+)Headac he and (-)Fever. Mouth/Throat: (+) Sore Throat, (-+)Hoarseness, (-)Bleeding Gums Eyes:(-) Eye pain, (-)change in vision,( -)flashing lights. Neck:(+) Swollen Glands, (+)Stiffness, Nose/Sinuses:(+) Nasal Stuffiness, (+)Congestion, (+)Discharge, (+)Sinus Pressure. Ears: (-) Pain, (+) Fullness (-)Discharge, (-)Ringing, (-) Dizziness. Skin: (-) itching,(-) change to hair and nails,( -)rash Pulmonary: (+) Cough(,productive), (+) Dyspnea, (+ sometimes)Wheezing. Cardiac: (-) Chest pain, (-)Edema. Gastrointestinal: (-) Nausea,(-) Vomiting,( -)Diarrhea( -)Abdominal Pain. Psychological: (-) Anxiety, (-) Depression, (-) Thoughts of self-harm. PHYSICAL EXAM Patient in seated position. Appearance fatigue, well groomed, alert and orientated, no acute distress, speech clear, and evenly paced, good historian, cooperative. Head: Normocephalic Ear: External pinna skin intact with no mases, lesions, tenderness, or discharge. Otoscopic: Landmarks external canals clear with no redness swelling, lesions, discharge. TM bilaterally pearly de with light reflex and landmarks intact, no perforation. Nose: Nose symmetric, no deformity, or lesions, nares patent, mucosa pink, no discharge, lesions, polyps, no septal deviation or perforation. Sinus : tenderness to ethmoid, and maxillary sinus upon palpation, [No] transillumination diffuse red glow noted. Mouth: Throat mucosa pink, no lesions, or exudate, post nasal drip noted. Uvula midline rises on phonation. + gag reflex. Lips moist and pink. Teeth intact and well maintained no missing or chipped teeth. No foul-smelling odor from breath. Soft and hard palpate intact. Tongue surface smooth, shiny with veins. Skin: Inspection: Color: appropriate for ethnicity Moisture: dry to touch throughout Temperature: warm bilaterally Tenderness: no tenderness noted Texture: smooth, Edema: none noted Cardiac: Aortic: Regular S1 S2 no murmur noted at 2nd ICS R. Pulmonic: Regular S1 S2 no murmurs noted at 2nd ICS L. Midprecordial (ERBS): Regular S1 S2 no murmur noted at 3rd ICS L. Tricuspid: Regular S1 S2 no murmurs noted at 5thICS L. Mitral: Regular S1 S2 no murmurs noted at 5th ICS L MCL. Lungs: Inspection +symmetric expansion, Patient sitting supine, respirations full, easy, and unlabored, skin color appropriate for ethnicity, pink, no cyanosis, or lesions noted. Auscultation Patient supine clear to auscultation bilaterally all vesicular aguilera. Tracheal/bronchial- loud high pitch. Bronchovesicular moderate pitch. Abdomen: Inspection: Shape: rounded/ flat Masses: No masses noted bilaterally. Respiratory movement: even and easy RR bilaterally, unlabored, no acute distress. Auscultation: Bowel sounds: normal high pitched, gurgling, occurring irregular 5-30 seconds. Palpation: Light and Deep: abdomen soft, no guarding, rigidity, large masses, or tenderness noted. Diagnostic: COVID-19 and Flu Specimens obtained today in clinic for send out testing Plan/Impression: I have reviewed the COVID-19 algorithm, and counseled pt on COVID-19 current recommendations. Symptoms consistent with Acute URI, but reviewed other potential etiologies, and nasal swab obtained (using proper PPE) for COVID-19/influenza testing to err on the side of caution. Instructed to push fluids, rest, and to use appropriate over the counter (more content not included)... Normal [facility] Vital Signs Date Time Vital Sign Value Performing Clinician Facility 06-24-2025 16:20-0400 Body mass index (BMI) [Ratio] 44.8 kg/m2 Elina Morrison APRN.CNM Work Phone: [facility] 06-24-2025 16:20-0400 Body weight 118.39 kg Elina Morrison APRN.CNM Work Phone: [facility] 06-24-2025 16:20-0400 Diastolic blood pressure 68 mm[Hg] Elina Morrison APRN.CNM Work Phone: [facility] 06-24-2025 16:20-0400 Systolic blood pressure 120 mm[Hg] Elina Morrison APRN.CNM Work Phone: [facility] 05-26-2025 09:06-0400 Body mass index (BMI) [Ratio] 43.6 kg/m2 Elina Morrison APRN.CNM Work Phone: [facility] 05-26-2025 09:06-0400 Body weight 115.21 kg Elina Morrison HIDE WASHER.CNM Work Phone: [facility] 05-26-2025 09:06-0400 Diastolic blood pressure 74 mm[Hg] Elina Morrison HIDE WASHER.CNM Work Phone: [facility] 05-26-2025 09:06-0400 Systolic blood pressure 116 mm[Hg] Elina Morrison HIDE WASHER.CNM Work Phone: [facility] 04-28-2025 08:00-0400 Body mass index (BMI) [Ratio] 43.77 kg/m2 Elina Morrison HIDE WASHER.CNM Work Phone: [facility] 04-28-2025 08:00-0400 Body weight 115.67 kg Elina Morrison HIDE WASHER.CNM Work Phone: [facility] 04-28-2025 08:00-0400 Diastolic blood pressure 78 mm[Hg] Elina Morrison HIDE WASHER.CNM Work Phone: [facility] 04-28-2025 08:00-0400 Systolic blood pressure 116 mm[Hg] Elina Morrison HIDE WASHER.CNM Work Phone: [facility] 03-31-2025 10:38-0400 Body mass index (BMI) [Ratio] 43.43 kg/m2 Sherie Tripp HIDE WASHER.CNM Work Phone: [facility] 03-31-2025 10:38-0400 Body weight 114.76 kg Sherie Tripp HIDE WASHER.CNM Work Phone: [facility] 03-31-2025 10:38-0400 Diastolic blood pressure 76 mm[Hg] Sherie Plotts HIDE WASHER.CNM Work Phone: [facility] 03-31-2025 10:38-0400 Systolic blood pressure 120 mm[Hg] Sherie Plotts HIDE WASHER.CNM Work Phone: [facility] 02-20-2025 13:32-0400 Body height 162.6 cm Eloisa Gary HIDE WASHER.CHARGER OPERATOR Work Phone: [facility] 02-20-2025 13:32-0400 Body mass index (BMI) [Ratio] 44.46 kg/m2 Eloisa Gary HIDE WASHER.CHARGER OPERATOR Work Phone: [facility] 02-20-2025 13:32-0400 Body weight 117.48 kg Eloisa Gary HIDE WASHER.CHARGER OPERATOR Work Phone: [facility] 02-20-2025 13:32-0400 Diastolic blood pressure 68 mm[Hg] Eloisa Gary HIDE WASHER.CHARGER OPERATOR Work Phone: [facility] 02-20-2025 13:32-0400 Systolic blood pressure 120 mm[Hg] Eloisa Gary HIDE WASHER.CHARGER OPERATOR Work Phone: [facility] 03-19-2024 14:02-0400 Body height 163 cm Vesta Astudillo APRN.CHARGER OPERATOR Work Phone: [facility] 03-19-2024 14:02-0400 Body mass index (BMI) [Ratio] 47.63 kg/m2 Vesta Astudillo HIDE WASHER.CHARGER OPERATOR Work Phone: [facility] 03-19-2024 14:02-0400 Body weight 126.55 kg Vesta Astudillo APRN.CHARGER OPERATOR Work Phone: [facility] 03-19-2024 14:02-0400 Diastolic blood pressure 84 mm[Hg] Vesta Astudillo APRN.CHARGER OPERATOR Work Phone: [facility] 03-19-2024 14:02-0400 Systolic blood pressure 138 mm[Hg] Vesta Astudillo APRN.CHARGER OPERATOR Work Phone: [facility] 04-18-2022 15:48-0400 Body height 165.1 cm Text Entry [facility] 04-18-2022 15:48-0400 Body temperature 98.06 [degF] Text Entry [facility] 04-18-2022 15:48-0400 Diastolic blood pressure 105 mm[Hg] Text Entry [facility] 04-18-2022 15:48-0400 Heart rate 88 /min Text Entry [facility] 04-18-2022 15:48-0400 Respiratory rate 16 /min Text Entry [facility] 04-18-2022 15:48-0400 SaO2% (BldA) [Mass fraction] 99 % Text Entry [facility] 04-18-2022 15:48-0400 Systolic blood pressure 159 mm[Hg] Text Entry [facility] 11-01-2021 13:34-0500 Body height 165.1 cm Text Entry [facility] 11-01-2021 13:34-0500 Body temperature 97.16 [degF] Text Entry [facility] 11-01-2021 13:34-0500 Diastolic blood pressure 89 mm[Hg] Text Entry [facility] 11-01-2021 13:34-0500 Heart rate 91 /min Text Entry [facility] 11-01-2021 13:34-0500 SaO2% (BldA) [Mass fraction] 96 % Text Entry [facility] 11-01-2021 13:34-0500 Systolic blood pressure 134 mm[Hg] Text Entry [facility] Encounters Encounter Date Encounter Type Care Provider Facility Start: 09-01-2025 End: 09-01-2025 ambulatory MICHELLE BECKFORD Facility:[facility] Start: 08-26-2025 End: 08-26-2025 ambulatory ELINA MORRISON Facility:[facility] Start: 08-19-2025 End: 08-19-2025 ambulatory ELINA MORRISON Facility:[facility] Start: 08-18-2025 End: 08-19-2025 ambulatory Michelle Bui Facility:[facility] Start: 07-21-2025 End: 07-21-2025 ambulatory ELINA MORRISON Facility:[facility] Start: 06-24-2025 End: 06-24-2025 Patient encounter procedure Elina Morrison APRN.CNM Work Phone: OB/Gynecology Comment on above: Supervision of high risk in second trimester (HCC) (Primary Dx); 24 weeks gestation of (HCC); Screening for diabetes mellitus; Obesity in (HCC) Start: 06-24-2025 End: 06-24-2025 [facility] Facility:[facility] Start: 05-26-2025 End: 05-26-2025 Patient encounter procedure [employer] [facility] Comment on above: Obesity affecting pr egnancy in first trimester, unspecified obesity type (HCC) (Primary Dx); Encounter for supervision of high risk in first trimester, antepartum (HCC); Less than 8 weeks gestation of (HCC) Supervision of high risk in second trimester (HCC) (Primary Dx); Obesity in (HCC); 20 weeks gestation of (HCC) Start: 05-26-2025 End: 05-26-2025 [facility] MORRISON Facility:[facility] Start: 05-13-2025 End: 05-22-2025 Telephone encounter Elina Morrison APRN.CNM Work Phone: OB/Gynecology Comment on above: Medication Problem Start: 04-28-2025 End: 04-28-2025 Patient encounter procedure Elina Morrison APRN.CNM Work Phone: OB/Gynecology Comment on above: Encounter for superv ision of high risk in first trimester, antepartum (HCC) (Primary Dx); 16 weeks gestation of (HCC); Obesity affecting in first trimester, unspecified obesity type (HCC); History of trauma Start: 04-28-2025 End: 04-28-2025 [facility] ELINA ALEXANDER Facility:[facility] Start: 03-31-2025 End: 03-31-2025 ambulatory ELOISA GARY Facility:[facility] Start: 03-31-2025 End: 03-31-2025 Patient encounter procedure Sherie Tripp HIDE WASHER.MITRA Work Phone: OB/Gynecology Comment on above: 12 weeks gestation o f (HCC) (Primary Dx); Obesity affecting in first trimester, unspecified obesity type (HCC); Encounter for supervision of high risk in first trimester, antepartum (HCC); Nausea and vomiting, unspecified vomiting type Encounter for antena ta screening for malformation using ultrasound (HCC) (Primary Dx); 12 weeks gestation of (HCC); Encounter for (NT) nuchal translucency scan (HCC) Start: 03-31-2025 End: 03-31-2025 [facility] Facility:[facility] Start: 02-24-2025 End: 04-26-2025 Follow-up encounter Eloisa Gary APRN.CNP Work Phone: OB/Gynecology Start: 02-20-2025 End: 02-20-2025 Patient encounter procedure Eloisa Gary APRN.CNP Work Phone: OB/Gynecology Comment on above: Encounter for superv ision of high risk in first trimester, antepartum (HCC) (Primary Dx); Less than 8 weeks gestation of (HCC); with uncertain dates in first trimester (HCC); Obesity affecting in first trimester, unspecified obesity type (HCC); Screen for STD (sexually transmitted disease); Nausea and vomiting during (HCC); History of trauma Start: 02-20-2025 End: [facility] Start: 04-23-2024 End: 04-23-2024 Subsequent hospital visit by physician Diagnostic Mammo [facility] Comment on above: Mass overlapping mul tiple quadrants of left breast [N63.25] Start: 03-19-2024 End: 03-19-2024 Patient encounter procedure Vetsa Astudillo APRN.CNP Work Phone: OB/Gynecology Comment on above: Encounter for gyneco logical examination with abnormal finding (Primary Dx); Mass overlapping multiple quadrants of left breast; Screen for STD (sexually transmitted disease); Encounter for Papanicolaou smear for cervical cancer screening; Encounter for screening for human papillomavirus (HPV); Class 3 severe obesity with body mass index (BMI) of 45.0 to 49.9 in adult, unspecified obesity type, unspecified whether serious comorbidity present (HCC) Start: 03-19-2024 End: 03-19-2024 Patient encounter status Vesta Astudillo APRN.CNP Work Phone: [facility] [facility] Work Phone: Start: 07-02-2022 Refmukund GALLOWAY RN.CHARGER OPERATOR Work Phone: OB/Gynecology Comment on above: Refill Request; Refi ll Request Start: 04-18-2022 End: 04-18-2022 Emergency department patient visit Neela Sharif [facility] 01 Start: 11-01-2021 End: 11-01-2021 Emergency department patient visit Neela Sharif [facility] 01 Procedures Date Procedure Procedure Detail Performing Clinician Start: 05-26-2025 Us preg uterus after 1st trimest / gestation Eloisa Gary APRN.CHARGER OPERATOR Work Phone: Start: 03-31-2025 Antibody screen ELINA MORRISON Comment on above: Order Comment: Speci men Type: BLOOD SPECIMEN Ordering Facility: [facility] Address: [address] [place] [address] Performed By: #### T SPN #### [facility] CLIA [id number] [address] [place] [address] [place] [address] [place] Start: 03-31-2025 Us preg uterus after 1st trimest 1/ gestation Eloisa Gary APRN.CHARGER OPERATOR Work Phone: Start: 02-20-2025 Us uterus l imited 1/> fetuses Eloisa Gary APRN.CHARGER OPERATOR Work Phone: Start: 04-23-2024 Us breast uni real t oliva with image limited Vesta Astudillo APRN.CHARGER OPERATOR Work Phone: Start: 04-23-2024 Digital breast tomosynthesis bilateral Vesta Astudillo APRN.CHARGER OPERATOR Work Phone: Start: 01-30-2017 Adult depression scr eening assessment Vesta Astudillo APRN.CHARGER OPERATOR Work Phone: Plan of Treatment Date Care Activity Detail Author Start: 10-29-2034 Urine microalbumin profile DTaP,Tdap,Td Vaccine (9 - Td or Tdap) [facility] Start: 03-19-2029 Screening for malignant neoplasm of cervix Cervical Cancer Screening [facility] Start: 04-08-2026 Screening for malignant neoplasm of cervix Pap Testing [facility] Start: 09-01-2025 End: 09-01-2025 Patient encounter procedure 09/01/2025 4:30 PM EST Routine Office Visit OB/Gynecology [address] [place] [address] Sherie Tripp APRN.CNM [address] [place] [address] OB OB/Gynecology Comment on above: OB Start: 08-18-2025 End: 08-18-2025 Patient encounter procedure 08/18/2025 4:20 PM EDT Routine Office Visit OB/Gynecology [address] [place] [address] Mariia Red MD [address] [place] [address] Growth US on hold for this day waiting on order slot on hold /OB, Growth US on hold on 09/15 also OB/Gynecology Comment on above: Growth US on hold fo r this day waiting on order slot on hold /OB, Growth US on hold on 09/15 also Start: 08-17-2025 RSV Vaccine (1 - Ris k 1-dose series) RSV Vaccine (1 - Risk 1-dose series) [facility] Start: 07-21-2025 End: 07-21-2025 Patient encounter procedure 07/21/2025 8:00 AM EDT Routine Office Visit OB/Gynecology [address] [place] [address] Elina Morrison APRN.CNM [address] [place] [address] OB OB/Gynecology Comment on above: OB Start: 07-21-2025 End: 07-21-2025 ambulatory 07/21/2025 7:30 AM EDT Results Only [facility] [address] [place] [address] Glucose Test [facility] Comment on above: Glucose Test Start: 06-24-2025 End: 06-24-2025 Patient encounter procedure 06/24/2025 4:30 PM EDT Routine Office Visit OB/Gynecology [address] [place] [address] Elina Morrison APRN.CNM [address] [place] [address] OB OB/Gynecology Comment on above: OB Start: 06-24-2025 End: 09-23-2025 ANEMIA REFLEX PANEL ANEMIA REFLEX PANEL Lab Routine Supervision of high risk in second trimester (HCC) 24 weeks gestation of (HCC) Expected: 06/24/2025, Expires: 09/23/2025 [facility] Comment on above: Expected: 06/24/2025 , Expires: 09/23/2025 Start: 06-24-2025 End: 06-24-2026 GESTATIONAL GLUCOSE SCREEN, 1-HOUR, 50 GRAM, NON-FASTING GESTATIONAL GLUCOSE SCREEN, 1-HOUR, 50 GRAM, NON-FASTING Lab Routine Screening for diabetes mellitus Supervision of high risk in second trimester (HCC) 24 weeks gestation of (HCC) Expected: 06/24/2025, Expires: 06/24/2026 [facility] Work Phone: Comment on above: Expected: 06/24/2025 , Expires: 06/24/2026 Start: 06-24-2025 End: 06-24-2026 SYPHILIS TREPONEMAL W/REFLEX SYPHILIS TREPONEMAL W/REFLEX Lab Routine Supervision of high risk in second trimester (HCC) 24 weeks gestation of (HCC) Expected: 06/24/2025, Expires: 06/24/2026 [facility] Comment on above: Expected: 06/24/2025 , Expires: 06/24/2026 Start: 06-23-2025 Influenza vaccination C [facility] Start: 05-26-2025 End: 05-26-2025 Patient encounter procedure [facility] Comment on above: Anatomy Anatomy/OB Start: 04-28-2025 End: 04-28-2025 Patient encounter procedure 04/28/2025 8:00 AM EDT Routine Office Visit OB/Gynecology [address] [place] [address] Elina Morrison APRN.CNM [address] [place] [address] OB OB/Gynecology Comment on above: OB Start: 03-31-2025 End: 03-31-2025 Patient encounter procedure Maternal Medicine Comment on above: Nuchal Nuchal/OB Start: 03-25-2025 End: 03-25-2025 Patient encounter procedure 03/25/2025 10:00 AM EDT Office Visit OB/Gynecology [address] [place] [address] Vesta Astudillo APRN.CHARGER OPERATOR [address] [place] [address] Annual OB/Gynecology Comment on above: Annual Start: 02-20-2025 End: 05-22-2025 ANEMIA REFLEX PANEL ANEMIA REFLEX PANEL Lab Routine Encounter for supervision of high risk in first trimester, antepartum (HCC) with uncertain dates in first trimester (HCC) Obesity affecting in first trimester, unspecified obesity type (HCC) Expected: 02/20/2025, Expires: 05/22/2025 [facility] Work Phone: Comment on above: Expected: 02/20/2025 , Expires: 05/22/2025 Start: 02-20-2025 End: 05-22-2025 Hemoglobin A1c in Blood HEMOGLOBIN A1C Lab Routine Encounter for supervision of high risk in first trimester, antepartum (HCC) with uncertain dates in first trimester (HCC) Obesity affecting in first trimester, unspecified obesity type (HCC) Expected: 02/20/2025, Expires: 05/22/2025 [facility] Comment on above: Expected: 02/20/2025 , Expires: 05/22/2025 Start: 02-20-2025 End: 05-22-2025 Hepatitis B virus surface Ag [Presence] in Serum HEPATITIS B SURFACE ANTIGEN Lab Routine Encounter for supervision of high risk in first trimester, antepartum (HCC) with uncertain dates in first trimester (HCC) Obesity affecting in first trimester, unspecified obesity type (HCC) Expected: 02/20/2025, Expires: 05/22/2025 [facility] Comment on above: Expected: 02/20/2025 , Expires: 05/22/2025 Start: 02-20-2025 End: 05-22-2025 Hepatitis C virus Ab [Presence] in Serum HEPATITIS C ANTIBODY IA WITH CONFIRMATION Lab Routine Encounter for supervision of high risk in first trimester, antepartum (HCC) with uncertain dates in first trimester (HCC) Obesity affecting in first trimester, unspecified obesity type (HCC) Expected: 02/20/2025, Expires: 05/22/2025 [facility] Comment on above: Expected: 02/20/2025 , Expires: 05/22/2025 Start: 02-20-2025 End: 05-22-2025 HIV 1+2 Ab [Presence] in Serum or Plasma by Immunoassay HIV 1/2 COMBO WITH REFLEX TO DIFFERENTIATION Lab Routine Encounter for supervision of high risk in first trimester, antepartum (HCC) with uncertain dates in first trimester (HCC) Obesity affecting in first trimester, unspecified obesity type (HCC) Expected: 02/20/2025, Expires: 05/22/2025 [facility] Comment on above: Expected: 02/20/2025 , Expires: 05/22/2025 Start: 02-20-2025 End: 02-20-2026 OBSTETRIC ULTRASOUND WHI OBSTETRIC ULTRASOUND WHI Anc Imaging Routine Encounter for supervision of high risk in first trimester, antepartum (HCC) Less than 8 weeks gestation of (HCC) Expected: 02/20/2025, Expires: 02/20/2026 [facility] Comment on above: Expected: 02/20/2025 , Expires: 02/20/2026 Start: 02-20-2025 End: 05-22-2025 RUBELLA IGG ANTIBODY RUBELLA IGG ANTIBODY Lab Routine Encounter for supervision of high risk in first trimester, antepartum (HCC) with uncertain dates in first trimester (HCC) Obesity affecting in first trimester, unspecified obesity type (HCC) Expected: 02/20/2025, Expires: 05/22/2025 [facility] Comment on above: Expected: 02/20/2025 , Expires: 05/22/2025 Start: 02-20-2025 End: 05-22-2025 SYPHILIS TREPONEMAL W/REFLEX SYPHILIS TREPONEMAL W/REFLEX Lab Routine Encounter for supervision of high risk in first trimester, antepartum (HCC) with uncertain dates in first trimester (HCC) Obesity affecting in first trimester, unspecified obesity type (HCC) Expected: 02/20/2025, Expires: 05/22/2025 [facility] Comment on above: Expected: 02/20/2025 , Expires: 05/22/2025 Start: 02-20-2025 End: 05-22-2025 TYPE + SCREEN TYPE + SCREEN Blood Bank Routine Encounter for supervision of high risk in first trimester, antepartum (HCC) with uncertain dates in first trimester (HCC) Obesity affecting in first trimester, unspecified obesity type (HCC) Expected: 02/20/2025, Expires: 05/22/2025 [facility] Comment on above: Expected: 02/20/2025 , Expires: 05/22/2025 Start: 06-23-2024 Covid-19 Vaccine ( season) Covid-19 Vaccine () [facility] Start: 06-23-2024 Influenza vaccination C [facility] Start: 06-19-2024 End: 06-19-2024 Patient encounter procedure 06/19/2024 8:00 AM EDT Office Visit OB/Gynecology [address] [place] [address] Vesta Astudillo APRN.CHARGER OPERATOR [address] [place] [address] New Wt Mgmt OB/Gynecology Comment on above: New Wt Mgmt Start: 04-08-2024 PAP TESTING PAP TESTING [facility] Start: 04-03-2024 End: 04-03-2024 Patient encounter procedure 04/03/2024 11:00 AM EDT Appointment Radiology [address] [place] [address] Mass overlapping multiple quadrants of left breast [N63.25] Radiology Comment on above: Mass overlapping mul tiple quadrants of left breast [N63.25] Start: 10-23-2023 Behavioral Health Screening Behavioral Health Screening [facility] Start: 06-23-2023 Covid-19 Vaccine ( season) Covid-19 Vaccine () [facility] Start: 2022 Screening for malignant neoplasm of cervix HPV Testing [facility] Start: 06-23-2022 Influenza vaccination INFLUENZA (#1) [facility] Start: 01-09-2022 COVID-19 VACCINE (3 - Booster for Moderna series) COVID-19 VACCINE (3 - Booster for Moderna series) [facility] Start: 04-08-2019 Urine microalbumin profile [facility] Start: 01-30-2018 Adult depression screening assessment DEPRESSION SCREENING [facility] Start: 2010 Anxiety Screening Anxiety Screening [facility] Start: 2010 Depression Screening Depression Scre ening [facility] Bacteria identified in Urine by Culture BACTERIAL CULTURE, URINE Microbiology Routine Encounter for supervision of high risk in first trimester, antepartum (HCC) with uncertain dates in first trimester ([facility]) Obesity affecting in first trimester, unspecified obesity type ([facility]) 02/20/2025 2:24 PM EDT [facility] Chlamydia trachomatis+Neisseria gonorrhoeae DNA [Presence] in Unspecified specimen by NELLY with probe detection GONORRHEA/CHLAMYDIA NAAT Lab Routine Encounter for gynecological examination with abnormal finding Screen for STD (sexually transmitted disease) 03/19/2024 2:57 PM EDT [facility] Chlamydia trachomatis+Neisseria gonorrhoeae DNA [Presence] in Unspecified specimen by NELLY with probe detection GONORRHEA/CHLAMYDIA NAAT Lab Routine Encounter for supervision of high risk in first trimester, antepartum ([facility]) Screen for STD (sexually transmitted disease) 02/20/2025 2:24 PM EDT [facility] End: 06-14-2026 nonstress test NON-STRESS TEST Procedures Routine Supervision of high risk in second trimester ([facility]) 24 weeks gestation of ([facility]) Obesity in (HCC) Once per week for 5 Occurrences starting 06/24/2025 until 06/14/2026 [facility] Comment on above: Once per week for 5 Occurrences starting 06/24/2025 until 06/14/2026 End: 04-18-2025 MG Breast - bilateral Diagnostic JARED DIAGNOSTIC BILATERAL Radiology Routine Mass overlapping multiple quadrants of left breast 1 Occurrences starting 03/19/2024 until 04/18/2025 [facility] Comment on above: 1 Occurrences starti ng 03/19/2024 until 04/18/2025 End: 06-08-2026 OBSTETRIC ULTRASOUND WHI OBSTETRIC ULTRASOUND WHI Anc Imaging Routine Supervision of high risk in second trimester (HCC) Obesity in (HCC) 24 weeks gestation of (HCC) Once per month for 3 Occurrences starting 06/24/2025 until 06/08/2026 [facility] Comment on above: Once per month for 3 Occurrences starting 06/24/2025 until 06/08/2026 PAP TEST PAP TEST Lab Alexandra morejon Encounter for gynecological examination with abnormal finding Encounter for Papanicolaou smear for cervical cancer screening Encounter for screening for human papillomavirus (HPV) 03/19/2024 2:57 PM EDT [facility] TRICHOMONAS VAGINALI S NAAT TRICHOMONAS VAGINALIS NAAT Lab Routine Encounter for supervision of high risk in first trimester, antepartum (HCC) Screen for STD (sexually transmitted disease) 02/20/2025 2:24 PM EDT [facility] End: 04-18-2025 US Breast - left limited US BREAST LTD LEFT Radiology Routine Mass overlapping multiple quadrants of left breast 1 Occurrences starting 03/19/2024 until 04/18/2025 [facility] Work Phone: Comment on above: 1 Occurrences starti ng 03/19/2024 until 04/18/2025 Immunizations Immunization Date Immunization Notes Care Provider Garett haile 08-11-2021 COVID-19 vaccine, fu ll dose (MODERNA) Vesta Astudillo APRN.CHARGER OPERATOR Work Phone: [facility] Work Phone: 07-14-2021 COVID-19 vaccine, fu ll dose (MODERNA) Vesta Astudillo APRN.CHARGER OPERATOR Work Phone: [facility] Work Phone: 09-07-2020 influenza virus vacc ine, unspecified formulation Vesta Astudillo APRN.CHARGER OPERATOR Work Phone: [facility] 06-22-2019 influenza, injectabl e, quadrivalent, preservative free Vesta Astudillo APRN.CHARGER OPERATOR Work Phone: [facility] 08-14-2018 influenza, injectabl e, quadrivalent, preservative free Vesta Astudillo HIDE WASHER.[facility] Work Phone: [facility] 11-30-2016 influenza, seasonal, injectable Vesta Astudillo HIDE WASHER.[facility] Work Phone: [facility] 04-30-2015 tuberculin skin test ; purified protein derivative solution, intradermal Eloisa Gary APRN.CHARGER OPERATOR Work Phone: [facility] 12-15-2010 influenza virus vacc ine, whole virus Vesta Astudillo HIDE WASHER.CHARGER OPERATOR Work Phone: [facility] 12-21-2009 hepatitis A vaccine, pediatric/adolescent dosage, 2 dose schedule Vesta Astudillo HIDE WASHER[facility] Work Phone: [facility] 11-16-2009 HPV, unspecified formulation Vesta Astudillo HIDE WASHER[facility] Work Phone: [facility] 11-16-2009 human papilloma viru s vaccine, quadrivalent Vesta Astudillo HIDE WASHER[facility] Work Phone: [facility] Work Phone: 09-21-2009 influenza, seasonal, injectable Vesta Astudillo HIDE WASHER[facility] Work Phone: [facility] 09-21-2009 novel influenza-H1N1 -09, preservative-free, injectable Vesta Astudillo HIDE WASHER[facility] Work Phone: [facility] 06-03-2009 HPV, unspecified formulation Vesta Astudillo HIDE WASHER.CHARGER OPERATOR Work Phone: [facility] 06-03-2009 human papilloma viru s vaccine, quadrivalent Vesta Astudillo HIDE WASHER.CHARGER OPERATOR Work Phone: [facility] Work Phone: 04-08-2009 HPV, unspecified formulation Vesta Astudillo HIDE WASHER[facility] Work Phone: [facility] 04-08-2009 human papilloma viru s vaccine, quadrivalent Vesta Astudillo HIDE WASHER[facility] Work Phone: [facility] Work Phone: 04-08-2009 meningococcal polysaccharide (groups A, C, Y and W-135) diphtheria toxoid conjugate vaccine (MCV4P) Vesta Astudillo APRN.CHARGER OPERATOR Work Phone: [facility] 04-08-2009 tetanus toxoid, redu dharmesh diphtheria toxoid, and acellular pertussis vaccine, adsorbed Vesta Astudillo APRN.CHARGER OPERATOR Work Phone: [facility] 08-13-2008 influenza, seasonal, injectable Vesta Astudillo APRN.CHARGER OPERATOR Work Phone: [facility] 04-14-2005 diphtheria, tetanus toxoids and acellular pertussis vaccine, unspecified formulation Vesta Astudillo APRN.CHARGER OPERATOR Work Phone: [facility] 05-18-1998 diphtheria, tetanus toxoids and acellular pertussis vaccine, unspecified formulation Vesta Astudillo APRN.CHARGER OPERATOR Work Phone: [facility] 05-18-1998 measles, mumps and rubella virus vaccine Vesta Astudillo APRN.CHARGER OPERATOR Work Phone: [facility] 05-18-1998 poliovirus vaccine, unspecified formulation Vesta Astudillo APRN.CHARGER OPERATOR Work Phone: [facility] 03-14-1994 diphtheria, tetanus toxoids and acellular pertussis vaccine, unspecified formulation Vesta Astudillo APRN.CHARGER OPERATOR Work Phone: [facility] 03-14-1994 hepatitis B vaccine, pediatric or pediatric/adolescent dosage Vesta Astudillo APRN.CHARGER OPERATOR Work Phone: [facility] 03-14-1994 poliovirus vaccine, unspecified formulation Vesta Astudillo APRN.CHARGER OPERATOR Work Phone: [facility] 11-15-1993 haemophilus influenz ae type b vaccine, conjugate unspecified formulation Vesta Astudillo APRN.CHARGER OPERATOR Work Phone: [facility] 11-15-1993 measles, mumps and rubella virus vaccine Vesta Astudillo APRN.CHARGER OPERATOR Work Phone: [facility] 05-17-1993 hepatitis B vaccine, pediatric or pediatric/adolescent dosage Vesta Astudillo APRN.CHARGER OPERATOR Work Phone: [facility] 03-15-1993 diphtheria, tetanus toxoids and acellular pertussis vaccine, unspecified formulation Vesta Astudillo HIDE WASHER.CHARGER OPERATOR Work Phone: [facility] 03-15-1993 haemophilus influenz ae type b vaccine, conjugate unspecified formulation Vesta Astudillo HIDE WASHER.CHARGER OPERATOR Work Phone: [facility] 02-15-1993 hepatitis B vaccine, pediatric or pediatric/adolescent dosage Vesta Astudillo HIDE WASHER.CHARGER OPERATOR Work Phone: [facility] 01-06-1993 diphtheria, tetanus toxoids and acellular pertussis vaccine, unspecified formulation Vesta Astudillo HIDE WASHER.CHARGER OPERATOR Work Phone: [facility] 01-06-1993 haemophilus influenz ae type b vaccine, conjugate unspecified formulation Vesta Astudillo HIDE WASHER.CHARGER OPERATOR Work Phone: [facility] 01-06-1993 poliovirus vaccine, unspecified formulation Vesta Astudillo HIDE WASHER.CHARGER OPERATOR Work Phone: [facility] 1992 diphtheria, tetanus toxoids and acellular pertussis vaccine, unspecified formulation Vesta Astudillo HIDE WASHER.CHARGER OPERATOR Work Phone: [facility] 1992 haemophilus influenz ae type b vaccine, conjugate unspecified formulation Vesta Astudillo HIDE WASHER.CHARGER OPERATOR Work Phone: [facility] 1992 poliovirus vaccine, unspecified formulation Vesta Astudillo HIDE WASHER.CHARGER OPERATOR Work Phone: [facility] Payers Date Payer Category Payer Self-pay 2019 Private Health Insurance [employer] PPO Member Subscriber Plan / Payer (Effective 2019-Present) Name: Eric De Relation to Subscriber: Self Name: Eric De Payer ID: Not on file Type: PPO Address: [place] [id number] 2019 Unknown 2019 Unknown [id number] Unknown [id number] Social History Date Type Detail Facility [facility] Tobacco smoking consumption unknown [facility] Start: 06-07-2012 End: 03-19-2024 Tobacco smoking status NHIS Never smoked tobacco [facility] Start: 06-07-2012 End: 03-19-2024 Tobacco use and exposure Smokeless tobacco non-user [facility] Start: 04-08-2021 End: 03-19-2024 Alcohol intake Current drinker of alcohol (finding) [facility] Start: 04-08-2021 History SDOH Alcohol Comment occasional [facility] Start: 10-14-2019 History SDOH Social Connections Phone 5 [facility] Start: 10-14-2019 History SDOH Social Connections Bahai 2 [facility] Start: 10-14-2019 History SDOH Social Connections Membership 1 [facility] Start: 10-14-2019 History SDOH Social Connections Meetings 3 [facility] Start: 10-14-2019 History SDOH Social Connections Living 8 [facility] Start: 10-14-2019 History SDOH Physical Activity DPW 0 [facility] Start: 10-14-2019 Education 18 [facility] Start: 1990 Sex Assigned At Female [facility] Work Phone: Start: 10-14-2019 End: 03-19-2024 History of Social function [facility] Start: 10-14-2019 End: 03-19-2024 Social connection and isolation panel [facility] Do you belong to any clubs or organizations such as hindu groups, unions, fraternal or athletic groups, or school groups? Yes [facility] Are you now , , , , never or living with a partner? Living with partner [facility] Start: 09-23-2012 How hard is it for you to pay for the very basics like food, housing, medical care, and heating Not hard at all [facility] Do you feel stress - tense, restless, nervous, or anxious, or unable to sleep at night because your mind is troubled all the time - these days [OSQ] Not at all [facility] (I/We) worried wheth er (my/our) food would run out before (I/we) got money to buy more. Never true [facility] Start: 04-18-2017 Gender identity Identifies as female gender (finding) [facility] Start: 02-20-2025 End: 04-28-2025 Alcoholic beverage intake Ex-drinker (finding) [facility] Start: 01-19-2025 [facility] Goals Date Patient Goal Desired Activity /State Personal health goal Functional Status Date Assessment Result Facility 10-28-2014 Are you deaf, or do you have serious difficulty hearing No 10/28/2014 2:56 PM Alicia Mendieta, ALESSIO No [facility] 10-28-2014 Are you blind, or do you have serious difficulty seeing, even when wearing glasses No 10/28/2014 2:56 PM Alicia Mendieta, ALESSIO No [facility] 10-28-2014 Do you have serious difficulty walking or climbing stairs No 10/28/2014 2:56 PM Alicia Mendieta, ALESSIO No [facility] 10-28-2014 Do you have difficul ty dressing or bathing No 10/28/2014 2:56 PM Alicia Mendieta, ALESSIO No [facility] 10-28-2014 Because of a physica l, mental, or emotional condition, do you have difficulty doing errands alone such as visiting a physician's office or shopping No 10/28/2014 2:56 PM Alicia Mendieta, ALESSIO No [facility] Mental Status Date Assessment Result Facility 10-28-2014 Because of a physica l, mental, or emotional condition, do you have serious difficulty concentrating, remembering, or making decisions No 10/28/2014 2:56 PM Alicia Mendieta, ALESSIO No [facility] Clinical Notes 07-04-2022 to 09-01-2025 Quick Notes - Elina Morrison APRN.CN - 06/24/2025 4:30 PM EDTPrenatal Quick Notes - Elina Morrison APRN.CNM - 06/24/2025 4:30 PM EDTPatient InstructionsPatient Instructions Note Date & Type Note Facility 09-01-2025 Note HNO ID: [id number] Author: MICHELLE SAL MD Service: ? Author Type: Physician Type: Progress Notes Filed: 09/01/2025 14:12 Note Text: NST SUMMARY PROVIDER ASSESSMENT AND INTERPRETATION Eric De is a 35 year old female, , who is at 34w1d with an MARYSOL of 10/12/2025, by Ultrasound dating method. Indications for NST: Obesity Baseline: 140 Variability: Moderate Accelerations: Present 15 X 15 Decelerations: None Contractions: TOCO: None Interpretation: Category I and Reactive SIGNATURE: Michelle Bui MD [facility] 08-26-2025 Note HNO ID: [id number] Author: ELINA MORRISON APRN.CNM Service: ? Author Type: Professional Fee Coder Type: Progress Notes Filed: 08/26/2025 15:42 Note Text: NST SUMMARY PROVIDER ASSESSMENT AND INTERPRETATION Eric De is a 35 year old female, , who is at 33w2d with an MARYSOL of 10/12/2025, by Ultrasound dating method. Indications for NST: Obesity Baseline: 145 Variability: Moderate Accelerations: Present 15 X 15 Decelerations: None Contractions: TOCO: None Interpretation: Reactive SIGNATURE: Elina Morrison APRN.CNM [facility] 08-19-2025 Note HNO ID: [id number] Author: NAVDEEP ROGEL MA Service: ? Author Type: Veterinary Poultry Inspector Type: Progress Notes Filed: 08/19/2025 10:19 Note Text: TruBP: 126/82 124/84 122/83 121/81 Average: 122/83 [facility] 07-21-2025 Note HNO ID: [id number] Author: ELINA MORRISON APRN.CNM Service: ? Author Type: Professional Fee Coder Type: Progress Notes Filed: 07/21/2025 09:35 Note Text: MICHELLE-S: Eric De is a 34 year old female who presents at 28w1d with MARYSOL:10/12/2025, by Ultrasound for a routine visit. Denies headache, visual changes, chest pain, shortness of breath, vaginal bleeding, leakage of fluid, or dysuria. Feeling well, no complaints. O: See flow sheet Gen: No apparent distress Abd: nontender ASSESSMENT/PLAN: 1. Encounter for supervision of high risk in first trimester, antepartum -Continue PNV -Continue ASA - 1 hour GCT, CBC, and RPR today - O positive - TDAP declines - Influenza declines - LARC form reviewed and signed. Patient declines - Depression screen negative - Opioid screen negative - plan form discussed and given to patient. 2. 28 weeks gestation of 3. Obesity affecting in first trimester, unspecified obesity type -Pregravid BMI 43 -Growth US every 4 weeks starting at 28 weeks -NSTs weekly at 32 weeks -Recommend IOL at 39 weeks 4. History of trauma -Female providers only PTL precautions reviewed and when to call RTO in 4 weeks Elina Morrison APRN.CNM [facility] 06-24-2025 Miscellaneous Notes Formattin g of this note is different from the original. MICHELLE-S: Eric De is a 34 year old female who presents at 24w2d with MARYSOL:10/12/2025, by Ultrasound for a routine visit. Denies headache, visual changes, chest pain, shortness of breath, vaginal bleeding, leakage of fluid, or dysuria. Feeling well, no complaints. O: See flow sheet Gen: No apparent distress Abd: nontender ASSESSMENT/PLAN: 1. Encounter for supervision of high risk in first trimester, antepartum -Continue PNV -Continue ASA -28 week labs and Tdap next visit 2. 24 weeks gestation of 3. Obesity affecting in first trimester, unspecified obesity type -Pregravid BMI 43 -Growth US every 4 weeks starting at 28 weeks -NSTs weekly at 32 weeks -Recommend IOL at 39 weeks 4. History of trauma -Female providers only PTL precautions reviewed and when to call RTO in 4 weeks Elina Morrison APRN.CNM documented in this encounter [facility] 06-24-2025 Progress note Formatting of t his note is different from the original. MICHELLE-S: Eric De is a 34 year old female who presents at 24w2d with MARYSOL:10/12/2025, by Ultrasound for a routine visit. Denies headache, visual changes, chest pain, shortness of breath, vaginal bleeding, leakage of fluid, or dysuria. Feeling well, no complaints. O: See flow sheet Gen: No apparent distress Abd: nontender ASSESSMENT/PLAN: 1. Encounter for supervision of high risk in first trimester, antepartum -Continue PNV -Continue ASA -28 week labs and Tdap next visit 2. 24 weeks gestation of 3. Obesity affecting in first trimester, unspecified obesity type -Pregravid BMI 43 -Growth US every 4 weeks starting at 28 weeks -NSTs weekly at 32 weeks -Recommend IOL at 39 weeks 4. History of trauma -Female providers only PTL precautions reviewed and when to call RTO in 4 weeks Elina Morrison APRN.CNM [facility] 06-24-2025 Instructions Elina Morrison APRN.CNM - 06/24/2025 4:19 PM EDT Fresh Test is the 50gram packet Oral Glucose Tolerance Test During Your provider has ordered an oral glucose tolerance test. For more information: My [facility] Oral Glucose Tolerance Test How do I prepare for my one-hour glucose test? You don t need to prepare for your one-hour glucose screening. Most care providers recommend avoiding foods high in sugar for breakfast. For example, pancakes, donuts or juice. If you re testing later in the day, be aware that eating large amounts of sugar for lunch may affect your results. Can you eat before a glucose screening test? Yes, you can eat normally before your glucose screening test. What can I expect on the day of the glucose screening? On the day of your glucose screening, follow instructions given to you by your care provider or the lab (if applicable). Be sure to know exactly where to go for the screening and if you need an appointment. Safe Sleep for [place] For more information: [email or web address] Safe Sleep Healthy babies are safest when sleeping on their backs at nighttime and during naps. Side sleeping is not as safe as back sleeping and is not advised. SEQUENTIAL SCREENINGS The [facility] offers sequential screenings for women who are interested in screenings for chromosomal abnormalities and certain defects during a . The sequential screen combines ultrasound and blood tests to determine the risk of chromosomal abnormalities, including Down's Syndrome (Trisomy 21) and Trisomy 18, as well as open neural tube defects including spina bifida. Ultrasound examination is performed between 11 weeks and 13 weeks gestational age. Blood tests are drawn after the ultrasound and again later in the between 15 and 21 weeks gestational age. Please let your physician know if you are interested in this testing. It will require an appointment with our crime lab technician. This is not an ultrasound performed by a physician in our office during a routine visit. SIGNS AND SYMPTOMS OF LABOR 1. Contractions every 10 minutes or more often 2. Clear, pink, or brownish fluid (water) leaking from vagina 3. Feeling that baby is pushing down, pressure 4. Low, dull backache 5. Cramps that feel like a period 6. Cramps with or without diarrhea If you notice any of the above symptoms, contact our office at [phone] and ask to speak with a nurse. After hours, you can call doctors registry at [phone] OR call [facility] at [phone] and ask to have the doctor steam bone press tender paged. If you consider this an emergency, dial 91- or go to your nearest emergency department. NEED HELP? Are you dealing with a violent or abusive relationship? Are you a victim of rape or sexual assult? Call [facility] ([place]) 24 hour Crisis Hotline: 921.614.7381 or 425-361-4038. MANUAL Your Guide to a Healthy manual is now on-line. Visit [email or web address] to download your free copy documented in this encounter [facility] 05-26-2025 Progress note Formatting of t his note is different from the original. d NALINIS: Eric De is a 34 year old female who presents at 20w1d with MARYSOL:10/12/2025, by Ultrasound for a routine visit. Denies headache, visual changes, chest pain, shortness of breath, vaginal bleeding, leakage of fluid, or dysuria. Feeling well, no complaints. O: See flow sheet Gen: No apparent distress Abd: nontender ASSESSMENT/PLAN: 1. Encounter for supervision of high risk in first trimester, antepartum -Continue PNV -Continue ASA 2. 20 weeks gestation of -Anatomy US today 3. Obesity affecting in first trimester, unspecified obesity type -Pregravid BMI 43 -Growth US every 4 weeks starting at 32 weeks -NSTs weekly at 32 weeks -Recommend IOL at 39 weeks 4. History of trauma -Female providers only PTL precautions reviewed and when to call RTO in 4 weeks Elina Morrison APRN.CNM [facility] 05-26-2025 Miscellaneous Notes Formattin g of this note is different from the original. d MICHELLE-S: Eric De is a 34 year old female who presents at 20w1d with MARYSOL:10/12/2025, by Ultrasound for a routine visit. Denies headache, visual changes, chest pain, shortness of breath, vaginal bleeding, leakage of fluid, or dysuria. Feeling well, no complaints. O: See flow sheet Gen: No apparent distress Abd: nontender ASSESSMENT/PLAN: 1. Encounter for supervision of high risk in first trimester, antepartum -Continue PNV -Continue ASA 2. 20 weeks gestation of -Anatomy US today 3. Obesity affecting in first trimester, unspecified obesity type -Pregravid BMI 43 -Growth US every 4 weeks starting at 32 weeks -NSTs weekly at 32 weeks -Recommend IOL at 39 weeks 4. History of trauma -Female providers only PTL precautions reviewed and when to call RTO in 4 weeks Elina Morrison APRN.CNM documented in this encounter [facility] 05-26-2025 Instructions Theresa Layton MA - 05/26/2025 7:58 AM EDT SEQUENTIAL SCREENINGS The [facility] offers sequential screenings for women who are interested in screenings for chromosomal abnormalities and certain defects during a . The sequential screen combines ultrasound and blood tests to determine the risk of chromosomal abnormalities, including Down's Syndrome (Trisomy 21) and Trisomy 18, as well as open neural tube defects including spina bifida. Ultrasound examination is performed between 11 weeks and 13 weeks gestational age. Blood tests are drawn after the ultrasound and again later in the between 15 and 21 weeks gestational age. Please let your physician know if you are interested in this testing. It will require an appointment with our crime lab technician. This is not an ultrasound performed by a physician in our office during a routine visit. SIGNS AND SYMPTOMS OF LABOR 1. Contractions every 10 minutes or more often 2. Clear, pink, or brownish fluid (water) leaking from vagina 3. Feeling that baby is pushing down, pressure 4. Low, dull backache 5. Cramps that feel like a period 6. Cramps with or without diarrhea If you notice any of the above symptoms, contact our office at [phone] and ask to speak with a nurse. After hours, you can call doctors registry at [phone] OR call [facility] at [phone] and ask to have the doctor steam bone press tender paged. If you consider this an emergency, dial 9-1-3 or go to your nearest emergency department. NEED HELP? Are you dealing with a violent or abusive relationship? Are you a victim of rape or sexual assult? Call [facility] ([place]) 24 hour Crisis Hotline: 394.913.2110 or 308-756-5126. MANUAL Your Guide to a Healthy manual is now on-line. Visit [email or web address] to download your free copy documented in this encounter [facility] 05-22-2025 Telephone encount er Note Pt notified and voiced understanding. Darryl Cochran RN [facility] 05-22-2025 Miscellaneous Notes Formattin g of this note might be different from the original. Pt notified and voiced understanding. Darryl Cochran RN Sent in new prescription. Elina Portillo APRN.CNM Left message for patient to call office or check mychart message. Lindsey Calixto RN Left message for patient to call back. Was patient able to product picker vitamin at pharmacy or does an alternative need prescribed? Vitafol Ultra vitamin requires prior authorization. Per insurance a therapeutic alternative is preferred. Complete Leidy DHA, Plus, + DHA, TheraNatal Complete, M-Leidy Plus, documented in this encounter [facility] 05-22-2025 Telephone encount er Note Sent in new prescription. Elina Portillo APRN.CNM [facility] 05-20-2025 Telephone encount er Note Left message for patient to call office or check mychart message. Lindsey Calixto RN [facility] 05-13-2025 Telephone encount er Note Left message for patient to call back. Was patient able to product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 professional-society guided carrier screening and reviewed the conditions screened and limitations of screening. The availability of genetic counseling was reviewed. Information on carrier screening was provided. The patient Accepts 3) Patient offered option of Virtual Visits. Patient unsure. May consider in future. ACTIVE PROBLEM LIST Encounter for Supervision of High Risk in First Trimester, Antepartum ([facility]) - 02/20/2025 Comment: Care Checklist Vaccines: [] Flu vaccine [] declined [] RSV vaccine 32 0/7 - 36 6/7 (Jun - Nov) [] declined [] COVID vaccine [] declined [] TDaP 27-36 [] declined First trimester: [x] Dating US [] 1st tri labs [x] Pap smear [] Carrier screening - considering [] declined [] NIPT screening - considering [] declined [x] First trimester anatomy scan [] declined [x] universal ASA ordered (start 12w-16w) [] declined [] M Power Consult [] not indicated [] declined Second trimester: [] Anatomy scan [] Mode of Delivery - [] Feeding - [] Pump ordered [] Diabetes screen [] CBC, RPR [] Behavioral Health Screening Third trimester (28-30 weeks): [] Consent [] Contraception [] Chamber Magistrate [] TeamBirth handout Third trimester (36-40 weeks): [] GBS [] Presentation - [] Scheduled [] yes - Hibiclens, pre-op instructions, CBC, T&S ordered [] no [] H&P [] Preferences worksh Obesity Affecting in First Trimester ([facility]) - 02/20/2025 Comment: February 20, 2025 - Pre BMI 44 - Plan for growth and then weekly NSTs starting at 32 weeks. Eloisa Gary APRN.CNP Nausea and Vomiting During ([facility]) - 02/20/2025 Comment: 02/20/25 Vitamin B6 doses reviewed. To notify if prescription is needed. Eloisa Gary APRN.CNP History of Trauma - 02/20/2025 Comment: February 20, 2025 Female providers only. M power consult discussed. Eloisa Gary APRN.CNP With Uncertain Dates in First Trimester ([facility]) - 02/20/2025 Comment: February 20, 2025 POCUS not consistent with LMP. Confirm MARYSOL with NT. Eloisa Gary APRN.CNP Psoriasis - 03/19/2024 Follow up in 4-5 weeks or sooner prn. Plan for NT scan between 12w0d and 13w6d gestation. Eloisa Gary APRN.CNP documented in this encounter [facility] 02-20-2025 Instructions Eloisa Gary APRN.CNP - 02/20/2025 1:12 PM EDT Please select the following link to access the [facility] Your Guide to a Healthy . [email or web address] MORNING SICKNESS IN by Nathalia Power M.D. for [employer] As you may already know, morning sickness can often be more appropriately called evening sickness or ztsir-wanvvq-hj-the-day sickness. While there are the alis few, most women (50-90%) experience some degree of nausea, some have vomiting, and a few develop a severe form of vomiting during called hyperemesis gravidarum. What causes the nausea and vomiting of ? We can't explain why some people feel fine and others are green for months. Even the same woman may feel vastly different in each . There is some relationship between nausea and the level of the hormone hCG. In twin pregnancies, and in other situations where the hCG is greater than expected, nausea and vomiting tend to be worse. In a destined for miscarriage, hCG levels tend to be low, and nausea is often less severe. This being said, a lack of nausea doesn't guarantee that the is destined for miscarriage. The fact that nausea and vomiting are often signs of a healthy can offer a silver lining in the dark cloud of miserable nausea. How long will the nausea last? Fortunately, for most women, nausea and vomiting are a first trimester event, peaking at week 9-10 and waning by week 14-16. When you are feeling bad the weeks can go by slowly but most moms do feel tremendously better by the middle of the . Whether morning sickness is a brief experience or lasts through most of the , there are treatments that can make the weeks or months more tolerable. What can you do about it? Diet: See what works for you. Try eating bland dry foods, and avoid fatty or spicy foods. It is okay to eat a less than perfectly balanced diet in the first trimester. Have your liquids separately from dry foods. Try sports drinks, water, clear juices, Jules-aid, or non-caffeinated tea. Avoid carbonated beverages that fill up your stomach. Try eating lots of little meals. If you tend to feel sick when you first wake up, leave crackers next to the bed for a quick snack before rising. Keeping healthy snacks with you all day to nibble when you feel queasy can sometimes even prevent nausea from starting. vitamins and nausea: Pre- vitamins can sometimes worsen nausea in . While folate is necessary, especially early in the , it comes as a smaller pill that many people find more tolerable than the complete vitamin pill. Ask your practitioner if it is okay to temporarily replace vitamins and iron with just a folate pill if you find a significant worsening in the level of your nausea from the vitamins. Alternative therapies: Acupressure may be used to treat nausea in , and is not known to have any risks for the fetus. Wristbands (marketed for seasickness) that put pressure on an acupressure point at the wrist are often available at drugstores or travel stores. Patrick root is used for nausea in many traditional cultures. Some women take fresh grated patrick or patrick tablets. It is possible that the pill form contains other ingredients or contaminants, so you may want to try fresh patrick first. Medications: Emetrol is the only nausea medication approved for use in . It is available over the counter and is soothing to the stomach. A prescription medication called Bendectin was available in the -1979's and was shown to be safe in , but the company stopped marketing it in the [place] due to the costs of liability coverage. Bendectin contained 10 milligrams of vitamin B6 and 10 milligrams of Doxylamine. Two tablets were given at bedtime and a total of up to 4 tablets could be used in a 24-hour period. Interestingly, Unisom , which contains a higher dose (25 mg.) of the same medication, Doxylamine, is currently marketed as an tqqa-wcs-ycomvqa sleeping pill. Ask your practitioner if creating a vitamin B6/Doxylamine combination with xrcv-kbj-shydgjw medications would be safe for you. Prescription medications like Compazine and Phenergan can be used if the benefits outweigh possible risks, but these have not been clearly shown to be safe in . Zofran , an expensive anti-nausea medication often used to treat nausea from chemotherapy, can also be used. Can I throw up so much it harms the baby? The act of vomiting cannot hurt your fetus, which is protected inside the uterus. If you get dehydrated or develop a metabolic imbalance, this can be unhealthy. As long as you can keep down liquids, you and your baby will generally do all right. Eat when you feel able. If you are unable to keep anything down, or if you notice potential signs of dehydration such as lightheadedness, or concentrated and/or infrequent urination, call your practitioner. Some women need brief hospital admission for intravenous fluids and anti-nausea medications if their condition becomes severe. This severe form of nausea and vomiting is called Hyperemesis Gravidarum. As with many symptoms of , remind yourself that this, too, shall pass, and you'll have a wonderful baby to show for it! TREATMENT OPTIONS, SHORT VERSION: Frequent small meals Hydrate throughout day [employer] wrist pressure point applicators Patrick root (powdered, in capsules) 250mg four times a day Vitamin B6 25 mg tablet three times a day Also may be taken with half a tablet of Unisom three times a day (Doxylamine 12.5 mg) If severe (weight loss, dehydration), call us and come in for IV hydration and possible medication in the form of injections. Prescription medications such as Phenergan, Compazine, Reglan [facility] provides specialized care for patients whose experiences may be affected by previous traumatic experiences. The M-Power program is designed to care for patients who have experienced assault, physical or sexual abuse, previous childbirth trauma or other significant life events. Our goal is to provide you with the best experiences and outcomes. Nurses specially trained in trauma-informed care put your needs first, and provide you with confidential and compassionate support.This holistic approach ensures that feel prepared for labor, delivery, and the period. To speak with our team, please call [phone] or email [email or web address] documented in this encounter [facility] 04-23-2024 Note IMPRESSION: INCOMPLE TE: NEEDS ADDITIONAL IMAGING EVALUATION There is no abnormality seen in the left breast to correspond with the palpable abnormality, however, ultrasound is recommended. LIMITED ULTRASOUND OF LEFT BREAST: 04/23/2024 RESULT: No prior exams were available for comparison. Color flow and real-time ultrasound of the left breast 10 o'clock region were performed. De scale images of the real-time examination were reviewed. IMPRESSION: NEGATIVE There is no sonographic evidence of malignancy. There is no abnormality seen in the left breast to correspond with the palpable abnormality, however, clinical correlation is recommended. Chrissy reno/mari:04/23/2024 09:49:23 Multiple national specialty organizations have released breast cancer screening guidelines for women at average risk for developing breast cancer - guidelines that are based on both evidence and opinion, yet differ on when to start and how often to screen for breast cancer. With representation from Breast Imaging, Internal Medicine, Women's Health, Family Medicine, and Medical/Surgical Oncology, the [facility] has carefully reviewed the data and reached the following consensus: 1) All women should engage in shared decision-making with their providers to decide when to start and how often to screen; 2) All women should have the opportunity to start screening mammography at age 40; 3) For women ages 45-55, we recommend annual screening mammograms; 4) For women ages 55 and over, we support both the transition from an annual to a biennial interval if this aligns more with patient's values and preferences, or continuation with annual screening; 5) All women should discuss with their providers when to stop screening mammograms. Door Worker(s): Gloria Franklin, [facility]; RT Grady(R)(M), [facility] OVERALL STUDY BIRADS: 1 Negative Notereader: Mari Transcribe Date/Time: Apr 23 2024 9:01A Dictated by: CHRISSY JOHNSTON MD This examination was interpreted and the report reviewed and electronically signed by: CHRISSY JOHNSTON MD on Apr 23 2024 9:49AM [facility] 04-23-2024 Note IMPRESSION: INCOMPLE TE: NEEDS ADDITIONAL IMAGING EVALUATION There is no abnormality seen in the left breast to correspond with the palpable abnormality, however, ultrasound is recommended. LIMITED ULTRASOUND OF LEFT BREAST: 04/23/2024 RESULT: No prior exams were available for comparison. Color flow and real-time ultrasound of the left breast 10 o'clock region were performed. De scale images of the real-time examination were reviewed. IMPRESSION: NEGATIVE There is no sonographic evidence of malignancy. There is no abnormality seen in the left breast to correspond with the palpable abnormality, however, clinical correlation is recommended. Chrissy reno/mari:04/23/2024 09:49:23 Multiple national specialty organizations have released breast cancer screening guidelines for women at average risk for developing breast cancer - guidelines that are based on both evidence and opinion, yet differ on when to start and how often to screen for breast cancer. With representation from Breast Imaging, Internal Medicine, Women's Health, Family Medicine, and Medical/Surgical Oncology, the [facility] has carefully reviewed the data and reached the following consensus: 1) All women should engage in shared decision-making with their providers to decide when to start and how often to screen; 2) All women should have the opportunity to start screening mammography at age 40; 3) For women ages 45-55, we recommend annual screening mammograms; 4) For women ages 55 and over, we support both the transition from an annual to a biennial interval if this aligns more with patient's values and preferences, or continuation with annual screening; 5) All women should discuss with their providers when to stop screening mammograms. Door Worker(s): Gloria Franklin, [facility]; RT Grady(R)(M), [facility] OVERALL STUDY BIRADS: 1 Negative Notereader: Mari Transcribe Date/Time: Apr 23 2024 9:01A Dictated by : CHRISSY JOHNSTON MD This examination was interpreted and the report reviewed and electronically signed by: CHRISSY JOHNSTON MD on Apr 23 2024 9:49AM [facility] DIV[facility] 04-23-2024 History of Presen t illness Narrative Radiology Service Progress Note PATIENT NAME: Eric De DATE OF SERVICE: April 23, 2024 TIME: 9:37 AM PATIENT IDENTITY VERIFICATION COMPLETED USING TWO (2) IDENTIFIERS: Name and Date of confirmed by patient verbally. FALL SCREENING: Has the patient had 2 falls in the last year or 1 fall with injury or currently using an Ambulatory Assistive Device (Walker, Cane, Wheelchair, Crutches, etc.)? No PATIENT GENDER DATA: Female. status: : No status: NO. PATIENT RELEVANT IMPLANT DATA REVIEWED: Not Applicable PATIENT PRESENTS WITH AN IMPLANTABLE OR ATTACHED TRAVEL OCCUPATIONAL THERAPIST: No RADIOLOGY DEPARTMENT: Mammography PERIPHERAL IV DATA: Not applicable SIGNED BY: Symone Rasmussen April 23, 2024 9:37 AM documented in this encounter [facility] 03-19-2024 History of Presen t illness Narrative Senior Sales Manager offered: Patient declines. Eric is a 33 year old who presents for an annual gynecologic exam with complaints, 2 month history of breast lump to inner left breast during SBE. Lump changes in size. Uncomfortable prior to menses. Also has a patch of psoriasis over lump . 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 Menses: cycles every 29-31 days and 7 days of flow. Contraception: condoms and natural family planning. Happy if occurs. HPV vaccine: Yes Last Pap: 04/13/2021 normal HPV: 11/18/2014 negative History of abnormal pap: Yes 2014 ASCUS, HPV negative Last mammogram: never Sexually active: Yes History of STDS: None Patient concerns for STD exposure: No. Time with current partner: 14 months Pain with intercourse: No Postcoital bleeding: No OB History T0 L0 SAB0 IAB0 Ectopic0 Multiple0 Live Births0 [employer] History LMP: 02/01/2024 (Exact Date), Having periods Age at Menarche: Age at First : Age at Menopause: [employer] History Comments: Sexual Activity: Yes; Male Contraception: Condom PAST MEDICAL HISTORY Diagnosis Date Irregular menses for 2 years after menarche Other psoriasis and similar disorders Plaque Psoriasis PAST SURGICAL HISTORY Procedure Laterality Date wisdom teeth extraction 04/01/2010 FAMILY HISTORY Problem Relation Age of Onset Hypertension Mother other (Skin lesion) Mother Not cancer, unsure other (Breast Cancer DUCI) Mother 56 Uterine Fibroids Mother Diabetes Maternal Grandfather Heart Maternal Grandfather CHF other (testicular cancer) Maternal Grandfather Hypertension Paternal Grandmother Rheumatologic disease Paternal Grandmother Lupus Colon Cancer Other none Breast Cancer Other none SOCIAL HISTORY Social History Tobacco Use Smoking status: Never Smokeless tobacco: Never Vaping Use Vaping Use: Never used Substance Use Topics Alcohol use: Yes Comment: occasional Drug use: No REVIEW OF SYSTEMS Abdomen: No abdominal pain, nausea, vomiting, diarrhea, or constipation. No bloating, early satiety, indigestion, or increased flatulence. Bladder: No dysuria, gross hematuria, urinary frequency, urinary urgency, or incontinence. Breast: See HPI. o nipple d/c, overlying skin changes, redness or skin retraction. Allergies and current medication updated:Yes EXAM: BP 138/84 Ht 5' 4.173 (1.63m) Wt 279 lb (126.6kg) LMP 02/01/2024 BMI 47.63 kg/(m^2). GENERAL: pleasant, female in no apparent distress HEENT: Normocephalic, atraumatic, mucus membranes moist, and no lesions NECK: Supple, full range of motion, no adenopathy, and thyroid normal DERMATOLOGY: Normal, non-icteric, and non-hirsute + psoriatic lesions BREAST: soft, non-tender, symmetric, normal nipple-areolar complex, no lymphadenopathy, no nipple discharge, and positive for non-tender dominant approximately 1.0 cm mass to inner left breast. CHEST: Normal inspiratory effort ABDOMEN: soft, non-tender. Difficult exam due to body habitus. PELVIC: external genitalia normal, normal Bartholin's glands, urethra, Landa's glands, no vulvar lesions, no cervical lesions, good vaginal support, physiologic discharge present, normal appearing perineal body and perianal region BIMANUAL: uterus normal size, shape and consistency, no adnexal masses, and non-tender RECTOVAGINAL: deferred. NEURO: alert and oriented x3,exam grossly non-focal EXTREMITIES: normal ASSESSMENT/PLAN: 1) Health maintenance: Pap done with HPV. Nutrition, exercise and routine health maintenance exams reviewed. HPV vaccine: completed series 2. Mass overlapping multiple quadrants of left breast - ICD9: 611.72, ICD10: N63.25 - US BREAST LTD LEFT - JARED DIAGNOSTIC BILATERAL 3. Class 3 severe obesity with body mass index (BMI) of 45.0 to 49.9 in adult, unspecified obesity type, unspecified whether serious comorbidity present (HCC) - ICD9: 278.01, V85.42, ICD10: E66.01, Z68.42 Weight increasing - CONSULT TO [facility] WEIGHT MANAGEMENT PROGRAM - CONSULT [facility] 4) Contraception: condoms and natural family planning. Contraceptive options reviewed and information provided. 5) STD screening: Accepted STD check for Gonorrhea and Chlamydia. 6) Follow up one year or sooner as needed Vesta Astudillo APRN.KAYLEN documented in this encounter [facility] 07-04-2022 Miscellaneous Notes Formattin g of this note might be different from the original. I called patient and she states she no longer lives near here and does not need a refill documented in this encounter [facility] Evaluation note Diagnosis General counseling for prescription of oral contraceptives [facility] Diagnosis Encounter for gynecological examination with abnormal finding- Primary Routine gynecological examination Mass overlapping multiple quadrants of left breast Screen for STD (sexually transmitted disease) Screening examination for venereal disease Encounter for Papanicolaou smear for cervical cancer screening Encounter for screening for human papillomavirus (HPV) Special screening examination for human papillomavirus (HPV) Class 3 severe obesity with body mass index (BMI) of 45.0 to 49.9 in adult, unspecified obesity type, unspecified whether serious comorbidity present (HCC) documented in this encounter [facility] note* Diagnosis Mass overlapping multiple quadrants of left breast documented in this encounter [facility] note* Diagnosis Mass overlapping multiple quadrants of left breast documented in this encounter [facility] note* Diagnosis Encounter for supervision of high risk in first trimester, antepartum (HCC)- Primary Less than 8 weeks gestation of ([facility]) state, incidental with uncertain dates in first trimester ([facility]) Obesity affecting in first trimester, unspecified obesity type ([facility]) Screen for STD (sexually transmitted disease) Screening examination for venereal disease Nausea and vomiting during ([facility]) History of trauma Personal history of other injury documented in this encounter [facility] note* Diagnosis 12 weeks gestation of (HCC)- Primary state, incidental Obesity affecting in first trimester, unspecified obesity type ([facility]) Encounter for supervision of high risk in first trimester, antepartum ([facility]) Nausea and vomiting, unspecified vomiting type documented in this encounter [facility] note* Diagnosis Encounter for screening for malformation using ultrasound ([facility])- Primary 12 weeks gestation of ([facility]) state, incidental Encounter for (NT) nuchal translucency scan ([facility]) Other specified screening documented in this encounter [facility] note* Diagnosis Encounter for supervision of high risk in first trimester, antepartum (HCC)- Primary 16 weeks gestation of ([facility]) state, incidental Obesity affecting in first trimester, unspecified obesity type ([facility]) History of trauma Personal history of other injury documented in this encounter [facility] note* Diagnosis Obesity affecting in first trimester, unspecified obesity type (HCC)- Primary Encounter for supervision of high risk in first trimester, antepartum (HCC) Less than 8 weeks gestation of ([facility]) state, incidental documented in this encounter [facility] note* Diagnosis Supervision of high risk in second trimester (HCC)- Primary Unspecified high-risk Obesity in (HCC) Obesity complicating , childbirth, or the puerperium, unspecified as to episode of care or not applicable 20 weeks gestation of (HCC) state, incidental [facility] Diagnosis Supervision of high risk in second trimester (HCC)- Primary Unspecified high-risk 24 weeks gestation of (HCC) state, incidental Screening for diabetes mellitus Obesity in (HCC) Obesity complicating , childbirth, or the puerperium, unspecified as to episode of care or not applicable documented in this encounter [facility] for referral (narrative)* Diagnostic Procedure Only (Routine) - Closed Specialty Diagnoses / Procedures Referred By Contac t Referred To Contact [facility] Diagnoses Mass overlapping multiple quadrants of left breast Procedures US BREAST LTD LEFT US BREAST UNI REAL TIME WITH IMAGE LIMITED eVsta Astudillo APRN.CNP [address] [place] [address] [facility] [address] [place] [address] Referral ID Status Reason Start Date Expiration Date V isits Requested Visits Authorized [id number] Closed Auto-Generate d Referral 03/19/2024 04/18/2025 1 1 [facility] for visit Narrative* Diagnostic Procedure Only (Routine) - Closed Specialty Diagnoses / Procedures Referred By Contac t Referred To Contact [facility] Diagnoses Mass overlapping multiple quadrants of left breast Procedures JARED DIAGNOSTIC BILATERAL DIAGNOSTIC MAMMOGRAPHY COMPUTER-AIDED DETCJ Vesta Astudillo APRN.CHARGER OPERATOR [address] [place] [address] [facility] [address] [employer] [address] Referral ID Status Reason Start Date Expiration Date V isits Requested Visits Authorized [id number] Closed Auto-Generate d Referral 03/19/2024 04/18/2025 1 1 [facility] for visit Narrative* Diagnostic Procedure Only (Routine) - Closed Specialty Diagnoses / Procedures Referred By Contac t Referred To Contact [facility] Diagnoses Mass overlapping multiple quadrants of left breast Procedures US BREAST LTD LEFT US BREAST UNI REAL TIME WITH IMAGE LIMITED Vesta Astudillo APRN.CHARGER OPERATOR [address] [place] [address] [facility] [address] [place] [address] Referral ID Status Reason Start Date Expiration Date V isits Requested Visits Authorized [id number] Closed Auto-Generate d Referral 03/19/2024 04/18/2025 1 1 [facility] Summary Purpose Family History No Family History Records FoundNo Family History Records FoundNo Family History Records FoundNo Family History Records Found Advance Directives No Advanced Directives Records FoundNo Advanced Directives Records FoundNo Advanced Directives Records FoundNo Advanced Directives Records Found Reason for Referral Specialty Diagnoses / Procedures Referred By Contac t Referred To Contact Diagnoses Class 3 severe obesity with body mass index (BMI) of 45.0 to 49.9 in adult, unspecified obesity type, unspecified whether serious comorbidity present (HCC) Procedures CONSULT [facility] OFFICE/OUTPATIENT [facility] 60 MINUTES Vesta Astudillo APRN.CHARGER OPERATOR [address] [place] [address] Referral ID Status Reason Start Date Expiration Date Visits Requested Visits Authorized [id number] Authorized PCP Requested Referral 03/19/2024 03/19/2025 1 1 Specialty Diagnoses / Procedures Referred By Contac t Referred To Contact R&D ENGINEER Diagnoses Class 3 severe obesity with body mass index (BMI) of 45.0 to 49.9 in adult, unspecified obesity type, unspecified whether serious comorbidity present (HCC) Procedures CONSULT TO [facility] WEIGHT MANAGEMENT PROGRAM OFFICE/OUTPATIENT [facility] 60 MINUTES Vesta Astudillo APRN.CHARGER OPERATOR [address] [place] [address] Vesta Astudillo APRN.CHARGER OPERATOR [address] [place] [address] Referral ID Status Reason Start Date Expiration Date Visits Requested Visits Authorized [id number] Authorized PCP Requested Referral Auto-Generate d Referral 03/19/2024 03/19/2025 1 1 Specialty Diagnoses / Procedures Referred By Contac t Referred To Contact [facility] Diagnoses Mass overlapping multiple quadrants of left breast Procedures JARED DIAGNOSTIC BILATERAL DIAGNOSTIC MAMMOGRAPHY COMPUTER-AIDED DETCJ BI Vesta Astudillo APRN.CHARGER OPERATOR [address] [place] [address] [facility] [address] [place] [address] Referral ID Status Reason Start Date Expiration Date Visits Requested Visits Authorized [id number] Authorized Auto-Generat ed Referral 03/19/2024 04/18/2025 1 1 Specialty Diagnoses / Procedures Referred By Contac t Referred To Contact [facility] Diagnoses Mass overlapping multiple quadrants of left breast Procedures US BREAST LTD LEFT US BREAST UNI REAL TIME WITH IMAGE LIMITED Vesta Astudillo APRN.CHARGER OPERATOR [address] [place] [address] [facility] [address] [place] [address] Referral ID Status Reason Start Date Expiration Date Visits Requested Visits Authorized [id number] Authorized Auto-Generat ed Referral 03/19/2024 04/18/2025 1 1 Additional Source Comments <item><item> Privacy Markings (unrecogniz ed section and content) Section Author: Eliza Dyson PROHIBITION ON REDISCLOSURE OF CONFIDENTIAL INFORMATION This notice accompanies a disclosure of information concerning a client made to you with the consent of such client. Section Author: Eliza Dyson PROHIBITION ON REDISCLOSURE OF CONFIDENTIAL INFORMATION This notice accompanies a disclosure of information concerning a client made to you with the consent of such client. INFORMATION SOURCE (unrecogn ized section and content) DATE CREATED AUTHOR 11/02/2021 [facility] DATE CREATED AUTHOR AUTHOR'S ORGANIZ ATION 04/21/2022 [facility] DATE CREATED AUTHOR AUTHOR'S ORGANIZ ATION 08/22/2025 [facility] DATE CREATED AUTHOR AUTHOR'S ORGANIZ ATION 09/02/2025 [facility] Source Comments (unrecognize d section and content) In the event this informatio n is protected by the Federal Confidentiality of Alcohol and Drug Abuse Patient Records regulations: The Federal rules restrict any use of the information to criminally investigate or prosecute any alcohol or drug abuse patient.[facility] the event this information is protected by the Federal Confidentiality of Alcohol and Drug Abuse Patient Records regulations: The Federal rules restrict any use of the information to criminally investigate or prosecute any alcohol or drug abuse patient.[facility] the event this information is protected by the Federal Confidentiality of Alcohol and Drug Abuse Patient Records regulations: The Federal rules restrict any use of the information to criminally investigate or prosecute any alcohol or drug abuse patient.[facility] the event this information is protected by the Federal Confidentiality of Alcohol and Drug Abuse Patient Records regulations: The Federal rules restrict any use of the information to criminally investigate or prosecute any alcohol or drug abuse patient.[facility] the event this information is protected by the Federal Confidentiality of Alcohol and Drug Abuse Patient Records regulations: The Federal rules restrict any use of the information to criminally investigate or prosecute any alcohol or drug abuse patient.[facility] the event this information is protected by the Federal Confidentiality of Alcohol and Drug Abuse Patient Records regulations: The Federal rules restrict any use of the information to criminally investigate or prosecute any alcohol or drug abuse patient.[facility] the event this information is protected by the Federal Confidentiality of Alcohol and Drug Abuse Patient Records regulations: The Federal rules restrict any use of the information to criminally investigate or prosecute any alcohol or drug abuse patient.[facility] the event this information is protected by the Federal Confidentiality of Alcohol and Drug Abuse Patient Records regulations: The Federal rules restrict any use of the information to criminally investigate or prosecute any alcohol or drug abuse patient.[facility] the event this information is protected by the Federal Confidentiality of Alcohol and Drug Abuse Patient Records regulations: The Federal rules restrict any use of the information to criminally investigate or prosecute any alcohol or drug abuse patient.[facility] the event this information is protected by the Federal Confidentiality of Alcohol and Drug Abuse Patient Records regulations: The Federal rules restrict any use of the information to criminally investigate or prosecute any alcohol or drug abuse patient.[facility] the event this information is protected by the Federal Confidentiality of Alcohol and Drug Abuse Patient Records regulations: The Federal rules restrict any use of the information to criminally investigate or prosecute any alcohol or drug abuse patient.[facility] the event this information is protected by the Federal Confidentiality of Alcohol and Drug Abuse Patient Records regulations: The Federal rules restrict any use of the information to criminally investigate or prosecute any alcohol or drug abuse patient.[facility] Hospital[facility] the event this information is protected by the Federal Confidentiality of Alcohol and Drug Abuse Patient Records regulations: The Federal rules restrict any use of the information to criminally investigate or prosecute any alcohol or drug abuse patient.[facility] Reason for Visit (unrecogniz ed section and content) Reason Onset Date Comments Refill Request Refill Request 07/04/2022 Reason Comments Well Woman Breast Mass Reason Comments Initial OB Visit Reason Comments US Specialty Diagnoses / Procedures Referred By Contac t Referred To Contact [facility] Diagnoses Encounter for supervision of high risk in first trimester, antepartum (HCC) Less than 8 weeks gestation of (HCC) Procedures OBSTETRIC ULTRASOUND WHI US PREG UTERUS AFTER 1ST TRIMEST GESTATION Eloisa Gary APRN.CHARGER OPERATOR [address] [place] [address] Phone: tel: fax: [facility] [address] [place] [address] Referral ID Status Reason Start Date Expiration Date V isits Requested Visits Authorized [id number] Closed Auto-Generate d Referral 02/20/2025 02/20/2026 1 Reason Onset Date Comments Care 04/28/2025 Reason Comments Medication Problem Referral ID Status Reason Start Date Expiration Date V isits Requested Visits Authorized [id number] Closed Auto-Generate d Referral 02/20/2025 02/20/2026 1 1 Reason Onset Date Comments Care 05/26/2025 Reason Onset Date Comments Care 06/24/2025 Care Teams (unrecognized sec tion and content) Medical Communication Specialist Relationship Specialty Start Date End Date Cheryl Gaming PA-C [address] [place], [place] [address] PCP - General Family Practice 01/30/17 Medical Communication Specialist Relationship Specialty Start Date End Date Cheryl Gaming PA-C [address] [place], [place] [id number] PCP - General Family Medicine 01/30/17 Medical Communication Specialist Relationship Specialty Start Date End Date Cheryl Gaming PA-C [address] [place], [place] [address] PCP - General Family Medicine 01/30/17 Medical Communication Specialist Relationship Specialty Start Date End Date Radha Arroyo, HIDE WASHER.CHARGER OPERATOR [address] [place], [place] [address] Medical Secretary Teacher Family Medicine 09/27/24 Vikki Nina, HIDE WASHER.CHARGER OPERATOR [address] [place], [place] [id number] Medical Secretary Teacher Family Medicine 09/27/24 Medical Communication Specialist Relationship Specialty Start Date End Date Radha Arroyo, HIDE WASHER.CHARGER OPERATOR [address] [place], [place] [address] Medical Secretary Teacher Family Medicine 09/27/24 Vikki Nina, HIDE WASHER.CHARGER OPERATOR [address] [place] [address] Medical Secretary Teacher [facility] 09/27/24 Medical Communication Specialist Relationship Specialty Start Date End Date Radha Arroyo, HIDE WASHER.CHARGER OPERATOR [address] [place] [address] Medical Secretary Teacher Family Medicine 09/27/24 Vikki Nina, HIDE WASHER.CHARGER OPERATOR [address] [place] [address] [facility] 09/27/24 Medical Communication Specialist Relationship Specialty Start Date End Date Radha Arroyo, HIDE WASHER.CHARGER OPERATOR [address] [place] [address] Medical Secretary Teacher [facility] 09/27/24 Vikki Nina, HIDE WASHER.CHARGER OPERATOR [address] [place] [address] [facility] 09/27/24 Medical Communication Specialist Relationship Specialty Start Date End Date Radha Arroyo, HIDE WASHER.CHARGER OPERATOR [address] [place] [address] [facility] 09/27/24 Vikki Nina, HIDE WASHER.CHARGER OPERATOR [address] [place] [address] [facility] 09/27/24 Medical Communication Specialist Relationship Specialty Start Date End Date Radha Arroyo, HIDE WASHER.CHARGER OPERATOR [address] [place] [address] [facility] 09/27/24 Vikki Nina, HIDE WASHER.CHARGER OPERATOR [address] [place], [place] [address] [facility] 09/27/24 Medical Communication Specialist Relationship Specialty Start Date End Date Radha Arroyo, HIDE WASHER.CHARGER OPERATOR [address] [place], [place] [address] [facility] 09/27/24 Vikki Nina, HIDE WASHER.CHARGER OPERATOR [address] [place], [place] [id number] [facility] 09/27/24 Medical Communication Specialist Relationship Specialty Start Date End Date Radha Arroyo, HIDE WASHER.CHARGER OPERATOR [address] [place], [place] [id number] [facility] 09/27/24 Vikki Nina, HIDE WASHER.CHARGER OPERATOR [address] [place], [place] [id number] [facility] 09/27/24 FOR RECORDS PERTAINING TO PATIENTS WHO ARE OR HAVE BEEN ENROLLED IN A CHEMICAL DEPENDENCY/SUBSTANCEABUSE PROGRAM, SOME INFORMATION MAY BE OMITTED. This clinical summary was aggregated from multiple sources. Caution should be exercised in using it in the provision of clinical care. This summary normalizes information from multiple sources, and as a consequence, information in this document may materially change the coding, format and clinical context of patient data. In addition, data may be omitted in some cases. CLINICAL DECISIONS SHOULD BE BASED ON THE PRIMARY CLINICAL RECORDS. [employer] provides no warranty or guarantee of the accuracy or completeness of information in this document.
[2025-09-22 20:23] LABS: Hematocrit 31.4 % (37-47); Hemoglobin 10.4 g/dL (12.0-15.0); Immature Granulocytes Count 0.180 X10^3/uL (0.0-0.0); Mean Corp Hgb Conc 33.1 g/dL (32-36); Mean Corpuscular Volume 80.1 fL (81-99); Mean Platelet Vol. 9.7 fl (6.2-12.0); NRBC Flagged by Analyzer 0 % (0-5); Platelet Count 256 K/mm3 (150-450); RBC Distribution Width CV 13.7 % (11.6-14.6); RBC Distribution Width SD 39.8 fl (35.1-43.9); Red Blood Count 3.92 M/mm3 (4.2-5.4); White Blood Count 14.7 K/mm3 (4.4-11.0)
[2025-09-22 21:13] LABS: Creatinine, Urine (random) 135.00 mg/dL (28.00-217.00); Protein, Urine (Random) 15.1 mg/dL (0.0-12.0); Protein:Creat Ratio 112 mg/g CRE (0-200)
[2025-09-22 21:17] LABS: Alanine Aminotransfer ALT/SGPT 8 U/L (<=34); Estimated Creatinine Clearance 169.76 ml/min (50-250); Syphilis Antibodies Nonreactive (Nonreactive)
--- NOTE | 2025-09-22 21:46 | PCM.HP.OB ---
HPI - General General Date of Admission: 09/22/25 Date of Service: 09/22/25 Chief Complaint: scheduled induction of labor HPI Narrative ERIC VELASQUEZ, is a 35 F who presents for a scheduled induction of labor for gHTN. No MONTESINOS, vision changes, upper abd pain. PFSH PFSH Medical History (Updated 09/22/25 @ 21:[address] Karen Triplett, DO) Psoriasis GBS (group B Streptococcus carrier), +RV culture, currently Autoimmune disease Gestational HTN Home Medications ?Medication ?Instructions ?Recorded ?Last Taken ?Type aspirin 81 mg capsule 81 mg PO DAILY 08/18/25 Unknown History vit no.95-ferrous 1 tab PO DAILY 08/18/25 Unknown History fumarate 28 mg-folic acid 800 mcg tablet () Allergy/AdvReac Type Severity Reaction Status Date / Time cat dander (cats) Allergy Mild Itching Verified 09/22/25 20:17 Environmental Allergies: Allergy Mild Itching Verified 09/22/25 20:17 Uncoded (dust) avocado (avocodo) Allergy Hives Verified 09/22/25 20:17 Surgical History (Updated 09/22/25 @ 21:33 by Lindsay Canchola) [place] teeth removed Vital Signs Vital Signs Vital Signs: 09/22/25 19:55 09/22/25 19:55 09/22/25 19:55 Temperature Temperature Source Temporal Pulse Rate 98 Respiratory Rate Blood Pressure BP Systolic BP Diastolic Pulse Ox 97 09/22/25 19:55 09/22/25 19:55 09/22/25 19:56 Temperature 98.6 F Temperature Source Pulse Rate Respiratory Rate 16 Blood Pressure 155/96 H BP Systolic 155 BP Diastolic 96 Pulse Ox 09/22/25 19:56 09/22/25 20:00 09/22/25 20:00 Temperature Temperature Source Pulse Rate 106 H 101 H Respiratory Rate Blood Pressure BP Systolic BP Diastolic Pulse Ox 99 09/22/25 20:05 09/22/25 20:05 09/22/25 20:10 Temperature Temperature Source Pulse Rate 104 H 103 H Respiratory Rate Blood Pressure BP Systolic BP Diastolic Pulse Ox 99 09/22/25 20:10 09/22/25 20:12 09/22/25 20:12 Temperature Temperature Source Pulse Rate 96 Respiratory Rate Blood Pressure BP Systolic BP Diastolic Pulse Ox 97 92 09/22/25 20:15 09/22/25 20:15 12/01/25 21:08 Temperature Temperature Source Pulse Rate 97 87 Respiratory Rate Blood Pressure BP Systolic BP Diastolic Pulse Ox 99 09/22/25 21:08 09/22/25 21:09 09/22/25 21:09 Temperature Temperature Source Pulse Rate 88 Respiratory Rate Blood Pressure 136/90 H BP Systolic 136 BP Diastolic 90 Pulse Ox 97 Weight Weight: 270 lb 11.642 oz Body Mass Index (BMI) 45.0 Labs Labs Labs: Blood Type O POSITIVE Antibody Screen NEGATIVE Hct, (37-47) 31.4 % L Hgb, (12.0-15.0) 10.4 g/dL L Syphilis Total Ab, (Nonreactive) Nonreactive Assessment & Plan (1) 37 weeks gestation of : (2) Gestational HTN: PLAN: Patient presents for scheduled IOL for gHTN. BP mild range on admission. Pre e labs sent. She is asymptomatic. Cytotec and sousa when able. EFW 3658 grams last week. Patient plans unmedicated . (3) Positive GBS test: PLAN: Start PCN once starting Pitocin (4) Obesity: (5) Polyhydramnios affecting : (6) History of trauma: PLAN: Prefers female providers only
[2025-09-22 22:13] LABS: AST(SGOT) 15 U/L (<=31); Uric Acid 2.8 mg/dL (2.6-6.0)
[2025-09-23] VITALS (31 sets, daily range): BP systolic 124–163; BP diastolic 70–95; PULSE 68–110; RESP 14–20; TEMP 36.1–37.3; O2SAT 97–100; BMI 20251202.0; BMI 639.0; BMI 1920.0
[2025-09-23] MEDS: 0.9% Saline Lock 10 ML Syringe IV ×2 (09:31→18:27)
--- NOTE | 2025-09-23 09:33 | PN.OBGYN_ITS ---
Objective Data Objective Data Vital Signs: Vital Signs Temp Pulse Resp BP Pulse Ox 96.9 F L 103 H 16 147/90 H 99 09/23/25 07:38 09/23/25 09:32 09/23/25 07:38 09/23/25 09:32 09/23/25 09:30 Weight: 270 lb 11.642 oz Body Mass Index (BMI) 45.0 Lab / Micro Data 09/22/25 20:00 09/22/25 20:00 Labs: Laboratory Results - last 24 hr 09/22/25 20:00: WBC 14.7 H, RBC 3.92 L, Hgb 10.4 L, Hct 31.4 L, MCV 80.1 L, MCH 26.5 L, MCHC 33.1, RDW Std Deviation 39.8, RDW Coeff of Adis 13.7, Plt Count 256, MPV 9.7, Immature Gran % (Auto) 1.200 H, Neut % (Auto) 75.5 H, Lymph % (Auto) 15.8 L, [place] % (Auto) 7.0, Eos % (Auto) 0.2, Baso % (Auto) 0.3, Absolute Neuts (auto) 11.1 H, Absolute Lymphs (auto) 2.32, Nucleated RBC % 0, Creatinine 0.62 L , Estim Creat Clear Calc 169.76, Est GFR (MDRD) Non-Af 120, Uric Acid 2.8, AST 15, ALT 8, U Random Total Protein 15.1 H, Urine Creatinine 135.00, Protein/Creatinin Ratio 112, Syphilis Total Ab Nonreactive, Blood Type O POSITIVE, Antibody Screen NEGATIVE NST FHR Rate Baby A Baseline: 145 Variability:: Moderate Accelerations:: 15 x 15 Decelerations:: Variable FHR Category:: Category II Uterine Activity:: every 4-5 minutes
[2025-09-23] MEDS: Lactated Ringers 1,000 ML 50 ML IV (09:35)
[2025-09-23] MEDS: Oxytocin 15 Units/NS 250ml 15 UNITS/250 ML IV.SOLN 2 UNITS IV (09:42)
[2025-09-23] MEDS: Penicillin G Pot 5,000,000 UNITS in 0.9% Normal Saline (100mL MB+) 100 ML 150 UNITS IV (10:00)
--- NOTE | 2025-09-23 12:02 | PCM.PN.OB ---
Subjective Subjective Walkign in halls and room. and mother at bedside. Coping well with contractions. Objective Data Objective Data Vital Signs: Vital Signs Temp Pulse Resp BP Pulse Ox 98.6 F 85 16 124/80 H 97 09/23/25 11:06 09/23/25 11:06 09/23/25 11:06 09/23/25 11:06 09/23/25 11:05 Weight: 270 lb 11.642 oz Body Mass Index (BMI) 45.0 Intake & Output: Intake and Output for Last 24 Hours 09/21/25 09/22/25 09/23/25 23:59 23:59 23:59 Intake Total 102.73 / 102.73 Balance 102.73 / 102.73 Lab / Micro Data 09/22/25 20:00 09/22/25 20:00 Labs: Laboratory Results - last 24 hr 09/22/25 20:00: WBC 14.7 H, RBC 3.92 L, Hgb 10.4 L, Hct 31.4 L, MCV 80.1 L, MCH 26.5 L, MCHC 33.1, RDW Std Deviation 39.8, RDW Coeff of Adis 13.7, Plt Count 256, MPV 9.7, Immature Gran % (Auto) 1.200 H, Neut % (Auto) 75.5 H, Lymph % (Auto) 15.8 L, [place] % (Auto) 7.0, Eos % (Auto) 0.2, Baso % (Auto) 0.3, Absolute Neuts (auto) 11.1 H, Absolute Lymphs (auto) 2.32, Nucleated RBC % 0, Creatinine 0.62 L, Estim Creat Clear Calc 169.76, Est GFR (MDRD) Non-Af 120, Uric Acid 2.8, AST 15, ALT 8, U Random Total Protein 15.1 H, Urine Creatinine 135.00, Protein/Creatinin Ratio 112, Syphilis Total Ab Nonreactive, Blood Type O POSITIVE, Antibody Screen NEGATIVE NST FHR Rate Baby A Baseline: 140 Variability:: Moderate Accelerations:: 15 x 15 Decelerations:: Variable FHR Category:: Category II Uterine Activity:: Every 3-5 minutes
--- NOTE | 2025-09-23 13:05 | PN_ITS ---
Progress Note patient seen at bedside, discussed IFM and IUPC. reviewed with patient that FHR is broken and with Pitocin being administered this is not adequate for monitoring. pt is reluctant at this time and wishes to keep attempting position changes. She is agreeable to IUPC. I discussed if tracing is still broken IFM to be placed for better monitoring of FHR.
--- NOTE | 2025-09-23 13:05 | PCM.PN.BLA ---
Progress Note patient seen at bedside, discussed IFM and IUPC. reviewed with patient that FHR is broken and with Pitocin being administered this is not adequate for monitoring. pt after discussion was agreeable to IUPC and IFM. VE: /-3 IFM and IUPC placed. I discussed with patient that at this time head is not engaged and pubic bone does seem prominent. Will try position changes. EFW <4500g.
[2025-09-23] MEDS: Penicillin G 3,000,000 Units 50 ML 100 UNITS IV ×2 (16:00→20:02)
--- NOTE | 2025-09-23 17:05 | PN.OBGYN_ITS ---
Objective Data Objective Data Vital Signs: Vital Signs Temp Pulse Resp BP Pulse Ox 97.9 F 69 18 151/86 H 97 09/23/25 16:59 09/23/25 17:01 09/23/25 16:59 09/23/25 17:01 09/23/25 11:05 Weight: 270 lb 11.642 oz Body Mass Index (BMI) 45.0 Intake & Output: Intake and Output for Last 24 Hours 09/21/25 09/22/25 09/23/25 23:59 23:59 23:59 Intake Total 136.00 / 136.00 Balance 136.00 / 136.00 Lab / Micro Data 09/22/25 20:00 09/22/25 20:00 Labs: Laboratory Results - last 24 hr 09/22/25 20:00: WBC 14.7 H, RBC 3.92 L, Hgb 10.4 L, Hct 31.4 L, MCV 80.1 L, MCH 26.5 L, MCHC 33.1, RDW Std Deviation 39.8, RDW Coeff of Adis 13.7, Plt Count 256, MPV 9.7, Immature Gran % (Auto) 1.200 H, Neut % (Auto) 75.5 H, Lymph % (Auto) 15.8 L, [place] % (Auto) 7.0, Eos % (Auto) 0.2, Baso % (Auto) 0.3, Absolute Neuts (auto) 11.1 H, Absolute Lymphs (auto) 2.32, Nucleated RBC % 0, Creatinine 0.62 L , Estim Creat Clear Calc 169.76, Est GFR (MDRD) Non-Af 120, Uric Acid 2.8, AST 15, ALT 8, U Random Total Protein 15.1 H, Urine Creatinine 135.00, Protein/Creatinin Ratio 112, Syphilis Total Ab Nonreactive, Blood Type O POSITIVE, Antibody Screen NEGATIVE Physical Exam Manual OB Exam: presentation cephalic, dilated 5, effaced 50 and station - 2 (to -3, and ballotable at times. Possible Caput felt. ) NST FHR Rate Baby A Baseline: 145 Variability:: Moderate Accelerations:: 15 x 15 Decelerations:: Variable FHR Category:: Category II Uterine Activity:: every 3-4 minutes, mild to moderate
[2025-09-23] MEDS: Lactated Ringers 1,000 ML 999 ML IV (19:42)
[2025-09-23] MEDS: fentaNYL-bupivacaine (epidural) 100 ML BAG EPIDURAL (21:19)
[2025-09-23] MEDS: LACTATED RINGERS 500 ML 999 ML IV (23:36)
[2025-09-24] VITALS (43 sets, daily range): BP systolic 112–161; BP diastolic 46–120; PULSE 63–127; RESP 15–20; TEMP 35.9–37.4; O2SAT 90–100; BMI 20251203.0; BMI 800.0
[2025-09-24] MEDS: Penicillin G 3,000,000 Units 50 ML 100 UNITS IV ×2 (00:06→03:54)
[2025-09-24] MEDS: Lactated Ringers 1,000 ML 200 ML IV ×2 (00:36→05:40)
[2025-09-24] MEDS: fentaNYL-bupivacaine (epidural) 100 ML BAG EPIDURAL ×2 (01:32→06:27)
--- NOTE | 2025-09-24 08:52 | PCM.PN.BLA ---
Progress Note Patient comfortable with epidural. No c/o. Physical Exam Narrative awake, alert, NAD cervix 5/80/-4, moderate caput Assessment & Plan Assessment/Plan (1) Arrest of dilation, delivered, current hospitalization: PLAN: I discussed with the patient risk-benefit and alternatives to section versus continuing trial of labor. IUPC does not seem to be working adequately. Contractions are palpating moderate. I discussed with the patient that she is afebrile and heart tones are overall reassuring and continue to be category 1 for the most part. Can continue expectant management but that would be increasing the risks of infection and hemorrhage. We discussed that the longer this protracted for stage of labor goes, the lower the chances of successful vaginal delivery and the higher the risk of complications. After discussion with the patient and her support persons their questions were answered and she would like to proceed with section now.
[2025-09-24] MEDS: Cefazolin 1 GM/5 ML Vial 3 GM IV (09:13)
[2025-09-24] MEDS: Lactated Ringers 1,000 ML 1000 ML IV (09:13)
[2025-09-24] MEDS: TRANEXAMIC ACID 1,000 MG/10 ML ML 1000 MG IV (09:20)
[2025-09-24] MEDS: Lidocaine 2% (5ml sdv) 5 ML VIAL.MPF 10 ML EPIDURAL (09:20)
[2025-09-24] MEDS: fentaNYL 100 MCG/2 ML Ampul EPIDURAL (09:20)
[2025-09-24] MEDS: morphine PF (epidural) 5 MG/10 ML Vial 3 MG EPIDURAL (10:05)
--- NOTE | 2025-09-24 10:14 | EX.PCM.OBRPT ---
Maternal Data Information Final MARYSOL: 10/12/25 Gestational age: 37 3/7 CNM who managed labor up until delivery: Elina Morrison Operative Report (OB) Procedure Details Date of Procedure: 09/24/25 Procedure Start Time: 09:33 Procedure Stop Time: 10:30 Time of Delivery: 09:39 Pre-Operative Diagnosis: Other Other Pre-Operative diagnosis: arrest of dilation Post-Operative Diagnosis: Same as Pre-operative diagnosis Classification: DUNIA Type of Anesthesia: Epidural Antibiotic Given: Ancef 3 grams IV x1 and Zithromax 500 mg/5 mL X1 Drain: Solitario to straight drain Estimated Blood Loss: 800 Fluids Replaced: 1000 Findings Description of surgery: The patient was taken to the operating room. She was prepped and draped in the dorsal supine position with a leftward tilt. A Pfannenstiel skin incision was made above the pannus fold above the symphysis pubis and carried through to underlying layer fascia with the scalpel. The fascia was incised incised in the midline and extended laterally with the Flores scissors. The fascia was dissected off the rectus muscles with blunt and sharp dissection. The rectus muscles were in the midline and the peritoneum was entered bluntly. The peritoneal incision was stretched and the bladder blade was placed. The Gilbert O retractor was placed. The uterine incision was made in a low transverse fashion with the scalpel and extended superiorly and inferiorly with blunt dissection. The amniotic membranes were ruptured bluntly and clear amniotic fluid returned. The infant's head was brought to the incision in the flexed position and delivered without difficulty. The remainder of the was delivered with gentle traction and fundal pressure in the standard fashion. The mouth and nares were bulb suctioned. The cord was clamped and cut as the infant was stimulated. Cord clamping was delayed 30 seconds. The infant was handed off to the waiting nursing staff. The placenta was delivered with fundal massage and gentle traction in the standard fashion. The uterus was exteriorized and cleared of all clots and debris. The uterine incision was closed with #1 Vicryl in a running locked fashion. A single [id number] suture was needed near the midline to stop bleeding from the sinus. The incision was examined and was found to be hemostatic. Hemablast was placed over the incision prophylactically. The uterus was placed back into the peritoneal cavity and hemostasis was again confirmed. The rectus muscles were examined and any bleeding was Bovie cauterized. The parietal peritoneum and rectus muscles were closed en bloc with an 0 Vicryl running suture. Hemoblast was placed over the rectus muscles and also in the subcutaneous tissue. The rectus fascia was examined and any bleeding was Bovie cauterized and the rectus fascia was closed with looped #1 PDS suture in a running standard fashion. The subcutaneous tissue was examining and any bleeding was Bovie cauterized. The subcutaneous tissue was reapproximated with 3-0 Vicryl suture. The skin was closed in a subcuticular fashion by the ADA ACCOMMODATION CONSULTANT with me present in the labor and delivery suite. I performed the remainder of the procedure with assistance. All sponge, lap, and needle counts were correct. The patient was taken to her room for recovery in a stable condition. Surgical findings: Normal placenta, normal tubes and ovaries vigorous female infant Presentation: Vertex Amniotic Membrane Rupture Type: Artificial Amniotic Fluid Description: Clear Placental Delivery Description: Expressed Placenta Disposition: [facility] Specimen collected: No Cord Vessel Description: 3 Vessels Cord Entanglement: Around neck x 1, loose Nuchal Cord Compression: Without compression Cord Gases: ABG and VBG Infant A gender: Female (Melanie) (1 minute): 8 (5 minute): 9 Delayed Cord Clamping: Yes Senior Designer permit specialist: Yes Construction Field Engineer: Tiago Nunez Tasks completed by nurse first assist: Closing, Hemostasis: Electrocautery and Retracting Additional assistant financial accountant?: Yes Additional Director Of Conservation #2: Kayla London MS3 Tasks completed by assistant financial accountant #2: Closing and Retracting Complications Complications: No Admit VTE Documentation VTE Present on Admission: No VTE Mechan Device Prophylaxis: SCD's VTE Pharm Prophylaxis Ordered: Yes
[2025-09-24] MEDS: Oxytocin 15 Units/NS 250ml 15 UNITS/250 ML IV.SOLN 83 UNITS IV (11:00)
[2025-09-24] MEDS: Ketorolac 30 MG/ML Syringe IV ×3 (12:18→23:27)
[2025-09-24] MEDS: Lactated Ringers 1,000 ML 100 ML IV (14:51)
[2025-09-24] MEDS: 0.9% Saline Lock 10 ML Syringe IV ×2 (18:45→23:27)
[2025-09-25] VITALS (7 sets, daily range): BP systolic 121–138; BP diastolic 71–88; PULSE 74–96; RESP 16–17; TEMP 36.3–36.5; O2SAT 96–98
[2025-09-25] MEDS: 0.9% Saline Lock 10 ML Syringe IV (06:34)
[2025-09-25] MEDS: Ketorolac 30 MG/ML Syringe IV (06:34)
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
[2025-09-25 07:20] LABS: Hematocrit 30.3 % (37-47); Hemoglobin 9.4 g/dL (12.0-15.0); Mean Corp Hgb Conc 31.0 g/dL (32-36); Mean Corpuscular Volume 83.9 fL (81-99); Mean Platelet Vol. 9.7 fl (6.2-12.0); Platelet Count 273 K/mm3 (150-450); RBC Distribution Width CV 13.8 % (11.6-14.6); RBC Distribution Width SD 42.5 fl (35.1-43.9); Red Blood Count 3.61 M/mm3 (4.2-5.4); White Blood Count 15.1 K/mm3 (4.4-11.0)
[2025-09-25] MEDS: Senna/Docusate Sodium 1 Tablet PO (10:02)
[2025-09-26 03:05] VITALS: BP 131/84; PULSE 84; RESP 16; TEMP 36.2; O2SAT 99
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
[2025-09-26 08:40] VITALS: BP 126/82; PULSE 85; RESP 16; TEMP 36.5; O2SAT 100
[2025-09-26] MEDS: Senna/Docusate Sodium 1 Tablet PO (09:58)
[2025-09-26 13:45] VITALS: TEMP 36.6
[2025-09-26 13:50] VITALS: BP 123/72; PULSE 68; RESP 16; TEMP 36.6; O2SAT 97
--- NOTE | 2025-10-02 10:38 | NURSING ---
Here for visit on 09/27/2025. Patients states she is feeling good, denies any pain. Patient stated her bleeding is minimal. Denied any headaches, visual changes, or Baby Blues. Infant was nursing better at home about every 2-3 hours and her milk is starting to come in. Collecting about 15mls in [place] while feeding on opposite side. See notes.
== END 2025-09-26 15:25 | disposition home or self-care (01) | DRG 787 ==
PROVIDERS: Admitting Provider Obstetrics & Gynecology; Referring Provider Obstetrics & Gynecology; Visit Provider Obstetrics & Gynecology
DX: O62.0 Primary inadequate contractions (principal); O99.354 Diseases of the nervous system complicating childbirth; O98.82 Other maternal infectious and parasitic diseases complicating childbirth; O99.214 Obesity complicating childbirth; O13.4 Gestational [pregnancy-induced] hypertension without significant proteinuria, complicating childbirth; Z79.82 Long term (current) use of aspirin; O69.2XX0 Labor and delivery complicated by other cord entanglement, with compression, not applicable or unspecified; Z37.0 Single live birth; Z3A.37 37 weeks gestation of pregnancy; O40.3XX0 Polyhydramnios, third trimester, not applicable or unspecified; Z87.828 Personal history of other (healed) physical injury and trauma; B95.1 Streptococcus, group B, as the cause of diseases classified elsewhere
CPT/HCPCS: 59025; 59050; 82565; 82570; 84156; 84450; 84460; 84550; 85025; 85027; 86780; 86850; 86900; 86901; 99221; A4216; G0378; J2405